=== PATIENT | female | born 1970 | race Caucasian/White ===

== ENCOUNTER 2024-12-10 21:17 | Emergency (ER) | payer OTHER, SELFPAY ==
[2024-12-10 21:33] VITALS: BP 106/74; PULSE 98; TEMP 36.6; O2SAT 98; BMI 20.6
[2024-12-10 22:02] LABS: Basophils % 0.4 %; Eosinophils # 0.3 10^3/uL (0.0-0.8); Eosinophils % 4.3 %; Hematocrit 36.3 % (36-47); Lymphocytes # 2.6 10^3/uL (0.8-4.8); Lymphocytes % 39.4 %; Mean Corpuscular HGB Conc 33.3 g/dL (30-55); Mean Corpuscular Hemoglobin 31.6 pg (27-33); Mean Corpuscular Volume 94.8 fl (85-98); Mean Platelet Volume 8.7 fL (7.4-10.4); Monocytes # 0.7 10^3/uL (0.2-0.9); Monocytes % 9.7 %; Neutrophils # 3.06 10^3/uL (1.8-7.7); Neutrophils % 46.1 %; Nucleated Red Blood Cells % 0 %; Platelet Count 386 10^3/cmm (157-399); Red Blood Count 3.83 10^6/uL (3.85-5.65); Red Cell Distribution Width 12.4 % (12.1-15.1); White Blood Count 6.67 10^3/uL (3.29-11.43)
--- NOTE | 2024-12-10 22:18 | W.ED.GENADLT ---
HPI - General Adult General: Chief complaint: General Medical Stated complaint: general weakness Time Seen by Provider: 12/10/24 22:00 History of Present Illness: 54-year-old female who presents to the emergency room from [facility] by ambulance. Apparently she was there waiting for a ride and she is not from here and when the ride did not arrive she started to feel very dizzy and lightheaded. She says she just does not feel well. She does not have any focal deficits. Has not eaten all day today since the morning. Related Data Allergies Allergy/AdvReac Type Severity Reaction Status Date / Time No Known Allergies Allergy Verified 12/10/24 21:39 Review of Systems Narrative: Constitutional symptoms: Negative except as documented in HPI. Skin symptoms: Negative except as documented in HPI. Eye symptoms: Negative except as documented in HPI. ENMT symptoms: Negative except as documented in HPI. Respiratory symptoms: Negative except as documented in HPI. Cardiovascular symptoms: Negative except as documented in HPI. Gastrointestinal symptoms: Negative except as documented in HPI. Genitourinary symptoms: Negative except as documented in HPI. Musculoskeletal symptoms: Negative except as documented in HPI. Neurologic symptoms: Negative except as documented in HPI. Psychiatric symptoms: Negative except as documented in HPI. Endocrine symptoms: Negative except as documented in HPI. Physical Exam Narrative: EXAM NARRATIVE: General: Alert, no acute distress. Skin: Warm, dry. Head: Normocephalic, atraumatic. Neck: Supple, trachea midline. Eye: Extraocular movements are intact. Ears, nose, mouth and throat: mucosa moist. Cardiovascular: Regular, Normal peripheral perfusion. Respiratory: Lungs are clear to auscultation, respirations are non-labored, breath sounds are equal, Symmetrical chest wall expansion. Gastrointestinal: Soft, Nontender, Non distended Musculoskeletal: Normal ROM, no deformity. Neurological: Alert and oriented, No focal neurological deficit observed. Psychiatric: Cooperative, odd affect Course Vital Signs: Vital signs: Vital Signs Temperature 97.9 F 12/10/24 21:33 Pulse Rate 74 12/10/24 22:42 Respiratory Rate 15 12/10/24 22:42 Blood Pressure 104/72 12/10/24 22:42 Pulse Oximetry 99 12/10/24 22:42 Oxygen Delivery Me thod Room Air 12/10/24 22:42 [facility] - General Adult Medical Decision Making Medical decision making: Differential diagnosis including but not limited to and based on the above HPI, review of systems and physical exam: for patient with complaint of dizziness: stroke, hypotension, hypertension, infection, vertigo, orthostasis Orders placed to evaluate differential diagnosis based on the above differential, HPI and physical exam Lab Review: Laboratory results were reviewed and interpreted by myself the emergency room physician. No leukocytosis. No anemia. No renal failure. No urinary tract infection. Flu COVID and RSV are negative. I reviewed the patient's medical record. Reexamination: Patient remained stable. No increased work of breathing. No altered mental status. No focal motor deficits. Assessment and plan: Dizziness/lightheadedness - Discharged home - Discussed plan with patient. Answered any questions. - Evaluation and treatment of this problem were appropriate in the emergency setting. Lab Data 12/10/24 21:50 12/10/24 21:50 Laboratory Results WBC 6.67 10^3/uL (3.29-11.43) 12/10/24 21:50 RBC 3.83 10^6/uL (3.85-5.65) L 12/10/24 21:50 Hgb 12.10 g/dL (11.27-16.99) 12/10/24 21:50 Hct 36.3 % (36-47) 12/10/24 21:50 MCV 94.8 fl (85-98) 12/10/24 21:50 MCH 31.6 pg (27-33) 12/10/24 21:50 MCHC 33.3 g/dL (30-55) 12/10/24 21:50 RDW 12.4 % (12.1-15.1) 12/10/24 21:50 Plt Count 386 10^3/cmm (157-399) 12/10/24 21:50 MPV 8.7 fL (7.4-10.4) 12/10/24 21:50 Neut % (Auto) 46.1 % 12/10/24 21:50 Lymph % (Auto) 39.4 % 12/10/24 21:50 [place] % (Auto) 9.7 % 12/10/24 21:50 Eos % (Auto) 4.3 % 12/10/24 21:50 Baso % (Auto) 0.4 % 12/10/24 21:50 Neut # (Auto) 3.06 10^3/uL (1.8-7.7) 12/10/24 21:50 Lymph # (Auto) 2.6 10^3/uL (0.8-4.8) 12/10/24 21:50 [place] # (Auto) 0.7 10^3/uL (0.2-0.9) 12/10/24 21:50 Eos # (Auto) 0.3 10^3/uL (0.0-0.8) 12/10/24 21:50 Baso # (Auto) 0.0 10^3/uL (0.0-0.1) 12/10/24 21:50 Nucleated RBC % (auto) 0 % 12/10/24 21:50 Nucleated RBCs # 0.0 /100WBC 12/10/24 21:50 Sodium 132 mmol/L (136-145) L 12/10/24 21:50 Potassium 3.7 mmol/L (3.5-5.1) 12/10/24 21:50 Chloride 98 mmol/L (98-107) 12/10/24 21:50 Carbon Dioxide 25 mmol/L (22-29) 12/10/24 21:50 Anion Gap 12.7 (5-19) 12/10/24 21:50 BUN 7 mg/dL (6-20) 12/10/24 21:50 Creatinine 0.9 mg/dL (0.5-0.9) 12/10/24 21:50 GFR Calculation 64.8 mL/min (90-130) L 12/10/24 21:50 Glucose 100 mg/dL (65-115) 12/10/24 21:50 Calculated Osmolality 272 mOsm/kg (285-295) L 12/10/24 21:50 Calcium 9.0 mg/dL (8.5-10.5) 12/10/24 21:50 Total Bilirubin 0.7 mg/dL (0.15-1.2) 12/10/24 21:50 AST 17 U/L (0-32) 12/10/24 21:50 ALT 17 U/L (0-33) 12/10/24 21:50 Alkaline Phosphatase 102 U/L (35-105) 12/10/24 21:50 Total Protein 6.9 g/dL (6.6-8.7) 12/10/24 21:50 Albumin 3.9 g/dL (3.5-5.2) 12/10/24 21:50 Globulin 3.0 g/dL (1.3-4.6) 12/10/24 21:50 TSH 2.37 uIU/mL (0.27-4.20) 12/10/24 21:50 Urine Color Yellow (Yellow) 12/10/24 22:08 Urine Appearance Clear (CLEAR) 12/10/24 22:08 Urine pH 7.5 (5-7) 12/10/24 22:08 Ur Specific [place] 1.002 (1.005-1.030) L 12/10/24 22:08 Urine Protein Negative (Negative) 12/10/24 22:08 Urine Glucose (UA) Negative (Normal) 12/10/24 22:08 Urine Ketones Negative (Negative) 12/10/24 22:08 Urine Blood Negative (Negative) 12/10/24 22:08 Urine Nitrate Negative (Negative) 12/10/24 22:08 Urine Bilirubin Negative (Negative) 12/10/24 22:08 Urine Urobilinogen 0.2 mg/dL (Negative) 12/10/24 22:08 Ur Leukocyte Esterase Negative (Negative) 12/10/24 22:08 Urine RBC 0-2 /hpf (0-2) 12/10/24 22:08 Urine WBC 0-5 /hpf (0-5) 12/10/24 22:08 Ur Squamous Epith Cells 0-5 /hpf (0-5) 12/10/24 22:08 Amorphous Sediment Not Reportable 12/10/24 22:08 Urine Bacteria None seen /hpf (NONE) 12/10/24 22:08 Hyaline Casts 0-4 /lpf H 12/10/24 22:08 Urine Opiates Screen Negative ng/mL (Negative) 12/10/24 22:08 Ur Barbiturates Screen Negative ng/mL (Negative) 12/10/24 22:08 Ur Phencyclidine Scrn Negative ng/mL (Negative) 12/10/24 22:08 Ur Amphetamines Screen Negative ng/mL (Negative) 12/10/24 22:08 U Benzodiazepines Scrn Negative ng/mL (Negative) 12/10/24 22:08 Urine Cocaine Screen Negative ng/mL (Negative) 12/10/24 22:08 U Marijuana (THC) Screen Negative ng/mL (Negative) 12/10/24 22:08 Influenza A (PCR) Negative (Negative) 12/10/24 22:08 Influenza Type B (PCR) Negative (Negative) 12/10/24 22:08 RSV (PCR) Negative (Negative) 12/10/24 22:08 SARS-CoV-2 (PCR) Negative (Negative) 12/10/24 22:08 No radiology studies performed this visit Discharge Plan Discharge Patient Disposition: Home Clinical Impression: Dizziness Condition: Stable Discharge Orders: Discharge ED (Routine); Ordered 12/10/24 Ordered By: Mindi Clements Discharge Diet: Usual diet Discharge Activity: Increase activity as tolerated Patient Instructions: Lightheadedness (ED), Opioid Safety, Pain Management Activity Restrictions/Additional Instructions: Thank you for choosing [facility] for your healthcare needs today. Please realize this is an emergency room and that we are providing you with a medical screening exam and this may not be complete and all inclusive of all the testing and or work up that you may need to determine your ailment or severity of your illness. You have been screened and evaluated and felt safe for discharge. Health conditions do change or evolve sometimes and as such it is important that you follow up with your Primary Doctor to be re checked, 3-5 days is a general good time frame for follow up. You are always welcome to return to the ED for re assessment if your symptoms are worsening or you have new concerns Print Language: Maltese Coding Level of Care Code ED Engine Dynamometer Tester for Maribeth James
[2024-12-10 22:20] LABS: Bilirubin Urine Negative (Negative); Blood Urine Negative (Negative); Glucose Urine UA Negative (Normal); Ketones Urine Negative (Negative); Leukocyte Esterase Urine Negative (Negative); Nitrate Urine Negative (Negative); Protein Urine Negative (Negative); Specific Gravity, Urine 1.002 (1.005-1.030); Urine Appearance Clear (CLEAR); Urine Color Yellow (Yellow); Urobilinogen Urine 0.2 mg/dL (Negative); pH Urine 7.5 (5-7)
[2024-12-10 22:25] LABS: Add Urine Microscopic? YES; Bacteria Urine None Seen /hpf; Hyaline Casts Urine 0-4 /lpf; RBC Urine 0-2 /hpf (0-2); Squamous Epithelial Cell Urine 0-5 /hpf (0-5); WBC Urine 0-5 /hpf (0-5)
[2024-12-10 22:29] LABS: Amphetamines Screen Urine Negative (Negative); Barbiturates Screen Urine Negative (Negative); Benzodiazepines Screen Urine Negative (Negative); Cocaine Screen Urine Negative (Negative); Opiate Screen Urine Negative (Negative); PCP Screen Urine Negative (Negative); THC Screen Urine Negative (Negative)
[2024-12-10 22:32] LABS: Alanine Aminotransferase 17 U/L (0-33); Albumin Level 3.9 g/dL (3.5-5.2); Alkaline Phosphatase 102 U/L (35-105); Anion Gap 12.7 (5-19); Aspartate Amino Transferase 17 U/L (0-32); Blood Urea Nitrogen 7 mg/dL (6-20); Carbon Dioxide 25 mmol/L (22-29); Chloride 98 mmol/L (98-107); Creatinine Clr Calc Pharmacy 50.9783; Glomerular Filtration Rate 64.8 mL/min (90-130); Glucose 100 mg/dL (65-115); Osmolality Calculated 272 mOsm/kg (285-295); Potassium 3.7 mmol/L (3.5-5.1); Sodium 132 mmol/L (136-145); Thyroid Stimulating Hormone 2.37 uIU/mL (0.27-4.20); Total Bilirubin 0.7 mg/dL (0.15-1.2); Total Protein 6.9 g/dL (6.6-8.7)
[2024-12-10 22:42] VITALS: BP 104/72; PULSE 74; RESP 15; O2SAT 99
[2024-12-10 22:54] LABS: Influenza A NEGATIVE (Negative); Influenza B NEGATIVE (Negative); Respiratory Syncytial Virus Ce NEGATIVE (Negative); SARS-CoV-2 PCR NEGATIVE (Negative)
[2024-12-10 23:08] VITALS: BP 103/74; PULSE 92; O2SAT 98
== END 2024-12-10 23:11 | disposition home or self-care (01) ==
PROVIDERS: Emergency Medicine; Emergency Provider Emergency Medicine
DX: R42 Dizziness and giddiness (principal); Z11.52 Encounter for screening for COVID-19
CPT/HCPCS: 36415; 80053; 80306; 81001; 84443; 85025; 87637; 99283

== ENCOUNTER 2025-07-17 17:40 | Inpatient (IN) | payer OTHER, SELFPAY ==
--- NOTE | 2025-07-17 17:40 | ECG_ITS ---
[employer] Test Date: 2025-07-17 Pat Name: Lluvia Thompson Department: Room: Gender: Female Facility Examiner: : 1970 Requested By: Mindi Grey Order Number: [id number] Harriet MD: Moses Martinez M.D. Measurements Intervals [place] Rate: 88 P: 71 [place]: 117 QRS: 24 QRSD: 85 T: 61 QT: 378 QTc: 458 Interpretive Statements SINUS RHYTHM WITH SHORT [place] INTERVAL Mild diffuse ST depression POSSIBLE RIGHT VENTRICULAR CONDUCTION DELAY [RSR (QR) IN V1/V2] No previous ECG available for comparison Electronically Signed On 07-20-2025 20:23:50 CDT by Moses Martinez M.D. [email or web address]
[2025-07-17 17:41] VITALS: BP 146/87; PULSE 97; RESP 18; TEMP 36.7; O2SAT 99; BMI 20.2
--- NOTE | 2025-07-17 17:42 | ED.C_ITS ---
HPI - Psych 2 General: Chief Complaint: Psychiatric Symptoms Stated Complaint: 96 HOLD Time Seen by Provider: 07/17/25 17:40 History of Present Illness: 54-year-old female who presents emergenc y room by ambulance from the crisis center on a 96-hour hold from the crisis center. Unknown medical history. Apparently she has been having delusional thoughts. 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 Apparently she was [place] last night at the Station curled up in the rain by dumpster. A civilian that brought her to the crisis center today offered her halfway in his van and she willingly went with them even though they did not know 1 another. She says and says she no him. Was thought she may be a danger to herself and she has no differentiation between reality and what is not real. Related Data Allergies Allergy/AdvReac Type Severity Reaction Status Date / Time No Known Allergies Allergy Verified 12/10/24 21:39 Review of Systems 2 Narrative: Constitutional symptoms: Negative except as documented in HPI. Skin symptoms: Negative except as documented in HPI. Eye symptoms: Negative except as documented in HPI. ENMT symptoms: Negative except as documented in HPI. Respiratory symptoms: Negative except as documented in HPI. Cardiovascular symptoms: Negative except as documented in HPI. Gastrointestinal symptoms: Negative except as documented in HPI. Genitourinary symptoms: Negative except as documented in HPI. Musculoskeletal symptoms: Negative except as documented in HPI. Neurologic symptoms: Negative except as documented in HPI. Psychiatric symptoms: Negative except as documented in HPI. Endocrine symptoms: Negative except as documented in HPI. Physical Exam 2 Narrative: EXAM NARRATIVE: General: Alert, no acute distress. Skin: Warm, dry. Head: Normocephalic, atraumatic. Neck: Supple, trachea midline. Eye: Extraocular movements are intact. Ears, nose, mouth and throat: mucosa moist. Cardiovascular: Regular, Normal peripheral perfusion. Respiratory: Lungs are clear to auscultation, respirations are non-labored, breath sounds are equal, Symmetrical chest wall expansion. Gastrointestinal: Soft, Nontender, Non distended Musculoskeletal: Normal ROM, no deformity. Neurological: Alert and oriented, No focal neurological deficit observed. Psychiatric: Cooperative, patient does seem to have a disconnect from reality at this time. Denies any homicidal or suicidal ideation. Course 2 Vital Signs: Vital signs: Vital Signs Temperature 98.1 F 07/17/25 17:41 Pulse Rate 85 07/17/25 19:11 Respiratory Rate 15 07/17/25 19:11 Blood Pressure 132/77 07/17/25 19:11 Pulse Oximetry 98 07/17/25 19:11 Oxygen Delivery Me thod Room Air 07/17/25 19:11 MDM - Psych Medical Decision Making Medical decision making: Patient's reason for coming to the emergency room: Sent with a 96-hour hold from [facility]. Social determinants: It appears patient may be homeless. I reviewed the patient's medical record. Patient has been here twice to the emergency room for different types of complaints. No medical history has been listed. Unknown if she has any psychiatric history. I reviewed the patient's current home meds Alternate historians: No known home meds. Differential diagnosis for patient with reported psychosis with plan for psychiatric admission including but not limited to and based on the above HPI, review of systems and physical exam: concerns for infection, alcohol intoxication, cardiac issues or other medical problems prior to psychiatric admission. Orders placed to evaluate differential diagnosis based on the above differential, HPI and physical exam labwork, ekg ordered to evaluate the pathologies and to clear the patient medically prior to psychiatric admission EKG: Time 1749. Rate 88. Normal sinus rhythm, No ST-T changes, no ectopy, normal PA & QRS intervals, This was reviewed and interpreted by myself the ER physician at 1754. Lab Review: Laboratory results were reviewed and interpreted by myself the emergency room physician. - Medically cleared. - EKG shows no ischemic changes. - Blood alcohol level is negative, as well as salicylate and Tylenol. - Drug screen and urinalysis pending at the time of admission. - No anemia. - BUN and creatinine are within normal limits. ?Potassium is low. Patient received 40 mill equivalents potassium Assessment of risk: - Level of risk moderate - Was hospitalization considered? Patient is on a hold. Consultation: I spoke with Dr. Calderon who is on-call for the psychiatry service who agrees to admission. Assessment and plan: Acute psychosis -Admission to neuropsychiatric unit for continued evaluation and treatment. - All lab work was reviewed and interpreted personally by myself, the ER physician - Evaluation and treatment of this problem were appropriate in the emergency setting Lab Data 07/17/25 17:59 07/17/25 17:59 Laboratory Results WBC 12.46 10^3/uL (3.29-11.43) H 07/17/25 17:59 RBC 4.21 10^6/uL (3.85-5.65) 07/17/25 17:59 Hgb 13.00 g/dL (11.27-16.99) 07/17/25 17:59 Hct 40.5 % (36-47) 07/17/25 17:59 MCV 96.2 fl (85-98) 07/17/25 17:59 MCH 30.9 pg (27-33) 07/17/25 17:59 MCHC 32.1 g/dL (30-55) 07/17/25 17:59 RDW 15.2 % (12.1-15.1) H 07/17/25 17:59 Plt Count 445 10^3/cmm (157-399) H 07/17/25 17:59 MPV 9.1 fL (7.4-10.4) 07/17/25 17:59 Neut % (Auto) 54.7 % 07/17/25 17:59 Lymph % (Auto) 32.7 % 07/17/25 17:59 [place] % (Auto) 10.4 % 07/17/25 17:59 Eos % (Auto) 1.8 % 07/17/25 17:59 Baso % (Auto) 0.1 % 07/17/25 17:59 Neut # (Auto) 6.82 10^3/uL (1.8-7.7) 07/17/25 17:59 Lymph # (Auto) 4.1 10^3/uL (0.8-4.8) 07/17/25 17:59 [place] # (Auto) 1.3 10^3/uL (0.2-0.9) H 07/17/25 17:59 Eos # (Auto) 0.2 10^3/uL (0.0-0.8) 07/17/25 17:59 Baso # (Auto) 0.0 10^3/uL (0.0-0.1) 07/17/25 17:59 Nucleated RBC % (auto) 0 % 07/17/25 17:59 Nucleated RBCs # 0.0 /100WBC 07/17/25 17:59 Sodium 140 mmol/L (136-145) 07/17/25 17:59 Potassium 2.7 mmol/L (3.5-5.1) L* 07/17/25 17:59 Chloride 100 mmol/L (98-107) 07/17/25 17:59 Carbon Dioxide 29 mmol/L (22-29) 07/17/25 17:59 Anion Gap 13.7 (5-19) 07/17/25 17:59 BUN 9 mg/dL (6-20) 07/17/25 17:59 Creatinine 1.0 mg/dL (0.5-0.9) H 07/17/25 17:59 GFR Calculation 57.4 mL/min (90-130) L 07/17/25 17:59 Glucose 105 mg/dL (65-115) 07/17/25 17:59 Calculated Osmolality 289 mOsm/kg (285-295) 07/17/25 17:59 Calcium 8.4 mg/dL (8.5-10.5) L 07/17/25 17:59 Total Bilirubin 0.7 mg/dL (0.15-1.2) 07/17/25 17:59 AST 18 U/L (0-32) 07/17/25 17:59 ALT 25 U/L (0-33) 07/17/25 17:59 Alkaline Phosphatase 123 U/L (35-105) H 07/17/25 17:59 Total Protein 6.9 g/dL (6.6-8.7) 07/17/25 17:59 Albumin 3.8 g/dL (3.5-5.2) 07/17/25 17:59 Globulin 3.1 g/dL (1.3-4.6) 07/17/25 17:59 TSH 4.09 uIU/mL (0.27-4.20) 07/17/25 17:59 HCG, Qual Negative (Negative) 07/17/25 17:45 Salicylates < 0.3 mg/dL (3-10) L 07/17/25 17:59 Acetaminophen < 5.0 ug/mL (10-30) L 07/17/25 17:59 Ethyl Alcohol < 10 mg/dL (0-10) 07/17/25 17:59 No radiology studies performed this visit Discharge Plan Discharge Patient Disposition: Admitted As Inpatient Clinical Impression: Acute psychosis Condition: Stable Coding Level of Care Code ED Stock [employer] Station Agent for Maribeth James
--- OUTSIDE RECORDS SUMMARY | 2025-07-17 17:46 | XMS_ITS | Data Portability ---
Author Organization [facility] Address [address] [place] [address] [place]aye [address] Assessment No assessment recorded. Plan of Treatment Reminders Order Date Submit Date Provider Last Modified By Organization Details Last Modified Time Details Appointments None recorded. Lab None recorded. Referral gynecologis t referral 2017 018 RUTH Lazo MD, [address] [place] [address] [address], [place], [address], 8 16:23:13 gynecologis t referral 2017 018 [email or web address] Gopal Lazo MD, [address] [place] [address] [address], [place], [address], 8 12:44:32 Procedures None recorded. Surgeries None recorded. Imaging None recorded. Medication Orders None recorded. Patient TargetsNo targets recorded. Patient Instructions Encounter Date Encounter Id Patient Instructions Last Modified By Organization Details Last Modified Time 11/18/2017 [id number] i will contact the patient with the date and time for gynecology followup [email or web address] Not available 11/18/2017 16:19:07 01/25/2018 [id number] vaginal bleeding after menopause: care instructions [email or web address] Not available 01/25/2018 15:32:45 Reason for Referral Wheat Washer Referral for Po stmenopausal bleeding Referring Physician: Carmencita Pelletier, Internal Medicine, Encounter Date: 11/18/2017 Wheat Washer Referral for Po stmenopausal bleeding Referring Physician: Carmencita Pelletier, Internal Medicine, Encounter Date: 01/25/2018 Problems Name Problem SNOMED Code Status Onset Date Resolution Date Notes Provider Name and Address Organization Details Recorded Time Furuncle of groin 41930415 Active 2016 Not Available [facility] 7 05:54:35 Postmenopausal bleeding 70601813 [facility] [address] [facility] 15:42:[facility] Notes:Some problems listed i n Document: #[id number] could not be added to this patient's chart. Please review this document and add these problems to the patient's chart manually as needed. Problem Notes None recorded. Medical Equipment None Reported. Allergies No known drug allergies Medications Name Sig Start Date Stop Date Status Note LastModified by Organization Details LastModified Time Bactrim DS 017 2016 completed Not Available Not Available Not Available mupirocin 017 2016 completed Not Available Not Available Not Available Vitals Date Recorded Body height Heart rate Respiratory rate Body temperature Body mass index (BMI) Body weight Systolic And Diastolic Provider Name and Address Organization Details Last Updated DateTime 8 154.94 cm 80 /min 14 /min 98.6 [degF] 20.8 kg/m2 02122.1 6 g 110/60 mm[Hg] Myriam Cope [facility] 8 16:07:17 Date Recorded Body height Heart rate Respiratory rate Body temperature Body mass index (BMI) Body weight Systolic And Diastolic Provider Name and Address Organization Details Last Updated DateTime 8 154.94 cm 88 /min 20 /min 97.2 [degF] 21.2 kg/m2 48572.3 5 g 120/70 mm[Hg] Darling Preciado [facility] 8 14:44:38 Social History Question Answer Notes LastModified by Organizat ion Details LastModified Time Tobacco Smoking Status Never Smoker Myriam soto [facility] 11/18/2017 16:07:40 How Often Do You Need To Have Someone Help You When You Read Instructions, Pamphlets, Or Other Written Material From Your Doctor Or Pharmacy? 1-Never [email or web address] Information not available 11/18/2017 What Was The Date Of Your Most Recent Tobacco Screening? 01/25/2018 Information n ot available 04/11/2019 Sex: Unknown Functional Status None recorded. Mental Status None recorded. Family History Nothing Reported. Medical History No medical history recorded. Gynecological HistoryNo gynecological history recorded. Obstetrics History GPAL:G 0 P 0 0 0 0 Past Encounters Encounter ID Performer Location Encounter Start Date Encounter Closed Date Diagnosis/Indication Diagnosis SNOMED-CT Code Diagnosis ICD10 Code Diagnosis IMO Codes Diagnosis Note [id number] Carmencita Pelletier MD [address] [address] 11/18/2017 15:46:31 11/18/2017 16:44:04 Postmenopausal bleeding 42302926 N95.0 [id number] Carmencita Pelletier MD [address] [address] 01/25/2018 14:32:33 01/30/2018 11:52:20 Postmenopausal bleeding 34208719 N95.0 will reschedule with gynecology Health Concerns Section Related Observation LastModified by Organization Detai ls LastModified Time None Recorded Concern Status LastModified by Organization Details LastModified Time None Recorded Advance Directives Directive None Recorded Payers Insurance Date Sequence Insurance Name Policy Number Policy Smith Covered Member ID Smith Member ID Guarantor Name 09/06/2023 1 DAVIS RODRIGUEZ - ESSENTIAL CARE 2 (PPO) [id number] Lluvia Thompson [id number] Lluvia Thompson Notes Date Note Type Note Provider Name and Address Organization Details Recorded Time 11/18/2017 text/html ROS as noted in the HPI patient for followup on an episode of post menopausal vaginal bleeding Carmencita Pelletier brittany [facility] 11/28/2017 11:10:59 01/25/2018 text/html ROS as noted in the HPI the patient comes in today for followup on her postmenopausal bleeding Carmencita Pelletier brittany [facility] 01/26/2018 21:18:14 OBGyn Episode No OBEpisode recorded.
[2025-07-17 18:18] LABS: HCG Qualitative Urine. Negative (Negative)
--- NOTE | 2025-07-17 18:18 | PC.NURSE ---
Pt was read their 96 hour hold rights, security was present.
[2025-07-17 18:20] LABS: Hematocrit 40.5 % (36-47); Hemoglobin 13.00 g/dL (11.27-16.99); Mean Corpuscular HGB Conc 32.1 g/dL (30-55); Mean Corpuscular Hemoglobin 30.9 pg (27-33); Mean Corpuscular Volume 96.2 fl (85-98); Nucleated Red Blood Cells % 0 %; Platelet Count 445 10^3/cmm (157-399); Red Blood Count 4.21 10^6/uL (3.85-5.65); White Blood Count 12.46 10^3/uL (3.29-11.43)
[2025-07-17 18:44] LABS: Alanine Aminotransferase 25 U/L (0-33); Albumin Level 3.8 g/dL (3.5-5.2); Alkaline Phosphatase 123 U/L (35-105); Anion Gap 13.7 (5-19); Aspartate Amino Transferase 18 U/L (0-32); Blood Urea Nitrogen 9 mg/dL (6-20); Calcium 8.4 mg/dL (8.5-10.5); Carbon Dioxide 29 mmol/L (22-29); Chloride 100 mmol/L (98-107); Globulin 3.1 g/dL (1.3-4.6); Glucose 105 mg/dL (65-115); Osmolality Calculated 289 mOsm/kg (285-295); Sodium 140 mmol/L (136-145); Thyroid Stimulating Hormone 4.09 uIU/mL (0.27-4.20); Total Protein 6.9 g/dL (6.6-8.7)
[2025-07-17 18:45] LABS: Acetaminophen < 5.0 ug/mL (10-30); Alcohol Level < 10 mg/dL (0-10); Potassium 2.7 mmol/L (3.5-5.1); Salicylate < 0.3 mg/dL (3-10)
[2025-07-17] MEDS: potassium chloride oral liq 20 mEq/15 mL UDC 40 MEQ PO (19:07)
[2025-07-17 19:11] VITALS: BP 132/77; PULSE 85; RESP 15; O2SAT 98
[2025-07-17 19:34] LABS: Glucose Urine UA Negative (Normal); Nitrate Urine Negative (Negative); Specific Gravity, Urine 1.004 (1.005-1.030)
[2025-07-17 19:39] LABS: Add Urine Microscopic? YES
[2025-07-17 19:41] LABS: PCP Screen Urine Negative (Negative)
[2025-07-17 21:44] VITALS: BP 109/75; PULSE 85; O2SAT 94
[2025-07-17 22:10] VITALS: BP 109/75; PULSE 85; O2SAT 94
[2025-07-17 22:12] VITALS: BP 132/83; PULSE 96; RESP 18; TEMP 37; O2SAT 95
[2025-07-18 06:00] VITALS: BP 138/92; PULSE 96; RESP 18; TEMP 36.7; O2SAT 89
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
--- NOTE | 2025-07-18 13:26 | PC.NURSE ---
Per Dr. Calderon ordered a CMP to recheck K+
[2025-07-18 14:00] VITALS: BP 108/68; PULSE 93; RESP 14; TEMP 37.1; O2SAT 94
[2025-07-18 15:47] LABS: Alanine Aminotransferase 17 U/L (0-33); Albumin Level 3.0 g/dL (3.5-5.2); Alkaline Phosphatase 103 U/L (35-105); Anion Gap 12.6 (5-19); Aspartate Amino Transferase 12 U/L (0-32); Blood Urea Nitrogen 15 mg/dL (6-20); Calcium 8.2 mg/dL (8.5-10.5); Carbon Dioxide 26 mmol/L (22-29); Chloride 103 mmol/L (98-107); Globulin 2.4 g/dL (1.3-4.6); Glucose 112 mg/dL (65-115); Osmolality Calculated 288 mOsm/kg (285-295); Potassium 3.6 mmol/L (3.5-5.1); Sodium 138 mmol/L (136-145); Total Protein 5.4 g/dL (6.6-8.7)
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
[2025-07-18 22:00] VITALS: BP 144/86; PULSE 81; RESP 18; TEMP 36.6; O2SAT 98
[2025-07-19 14:00] VITALS: BP 141/88; PULSE 80; RESP 16; TEMP 36.7; O2SAT 97
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
[2025-07-19 21:00] VITALS: BP 134/84; PULSE 107; RESP 18; TEMP 36.4; O2SAT 97
[2025-07-20 06:00] VITALS: BP 127/91; PULSE 86; RESP 16; TEMP 36.7; O2SAT 98
[2025-07-20 14:00] VITALS: BP 122/80; PULSE 88; RESP 16; TEMP 36.8; O2SAT 97
--- NOTE | 2025-07-20 15:36 | P.NPUPN_ITS ---
Subjective NPU 2 Subjective: Patient presented today reporting that things are going okay. She continues to be quite isolative per staff reports and direct observation. This staff writer has rarely seen her out of her room or out of bed. She does not need and set up during conversations at all. She continues to be resistant to considering medications, denies psychiatric history other than some slight difficulties with family conflict. His story does not match up with reports we got from community which we discussed but she denied that those reports were accurate. She is not interested in any medication. Mental Status Exam 2 MSE Comments: This is a thin white female who appeared older than her stated age with extremely poor hygiene and normal gait. There was no evidence of any abnormal involuntary motor movements tics or tremors appreciated. There was substantial psychomotor agitation. Her speech was slightly increased in rate and increased in volume with normal prosody. Her mood was described as angry. Her affect was irritable and mood-congruent. Her thought process was mostly linear and logical. Her thought content revealed no suicidal or homicidal ideation. There was evidence of prominent delusions and significant paranoid ideation. She did not appear to be responding to internal stimuli. She was alert and oriented to person and place along with date and year. Her recent and remote memory were impaired. Her attention span was impaired. Her insight is limited. Her judgment is poor. Her impulse control appeared very poor. Vitals/I&O/Wt Last Vital Signs Temp 98.3 F 07/20/25 14:00 Pulse 88 07/20/25 14:00 Resp 16 07/20/25 14:00 BP 122/80 07/20/25 14:00 Pulse Ox 97 07/20/25 14:00 O2 Del Method Room Air 07/20/25 06:00 Data NPU 07/17/25 17:59 07/18/25 15:13 A&P Assessment and plan 1. Acute psychosis: 2. Bipolar affective, manic, unspec: Plan: 54-year-old female negative for drugs of abuse or alcohol who presents acutely paranoid with bizarre delusions along with poor self-care. #1.? Engage patient in individual milieu and group therapy. #2?? Recommend sober living treatment at the highest level of care to which the patient is willing to commit #3???Evaluate under involuntary hold. Patient may require forced medication. ? #4?? TO-15 minute checks? #5?? Will attempt to gather collateral information. PDMP PDMP Reviewed: Not Reviewed Involuntary Hold Information 2 Hold Status: Legal Status: 96 Hour Hold Date/Time Hold Expires: 07/23/2025 @ 1741 Attestations NPU 2 Medical Necessity Statement*: Inpatient hospitalization is medically necessary and the clinically appropriate intervention at this time.? We will monitor/initiate medications and make changes as indicated.? The patient?s likely length of stay is 4-6 days.? Coding Level of Care Code Acute Code for Chg Fwd Diagnoses Acute psychosis F23 Bipolar affective, manic, unspec F31.10
[2025-07-20 20:20] VITALS: BP 131/78; PULSE 86; RESP 15; TEMP 36.6; O2SAT 99
[2025-07-21 06:00] VITALS: BP 114/73; PULSE 90; RESP 16; TEMP 36.7; O2SAT 96
[2025-07-21 14:00] VITALS: BP 139/91; PULSE 84; RESP 16; TEMP 36.5; O2SAT 100
--- NOTE | 2025-07-21 17:27 | P.NPUPN_ITS ---
Subjective NPU 2 Subjective: Patient presented today reporting she is going fine. She continues to be speculative and staying in her room. We discussed the fact that for her to discharge we needed to see her having capacity to function normally in this environment to extrapolate that she might be able to do that in a expanded outpatient reality. She continued to deny any psychiatric concerns but continued to fail to give some kind of explanation for her circumstances. We discussed the plan to get collateral information so that we knew what was best to do by her. She denied any side effects to medication. Mental Status Exam 2 MSE Comments: This is a thin white female who appeared older than her stated age with extremely poor hygiene and normal gait. There was no evidence of any abnormal involuntary motor movements tics or tremors appreciated. There was substantial psychomotor agitation. Her speech was slightly increased in rate and increased in volume with normal prosody. Her mood was described as angry. Her affect was irritable and mood-congruent. Her thought process was mostly linear and logical. Her thought content revealed no suicidal or homicidal ideation. There was evidence of prominent delusions and significant paranoid ideation. She did not appear to be responding to internal stimuli. She was alert and oriented to person and place along with date and year. Her recent and remote memory were impaired. Her attention span was impaired. Her insight is limited. Her judgment is poor. Her impulse control appeared very poor. Vitals/I&O/Wt Last Vital Signs Temp 98.6 F 07/21/25 20:53 Pulse 91 07/21/25 20:53 Resp 17 07/21/25 20:53 BP 151/92 07/21/25 20:53 Pulse Ox 98 07/21/25 20:53 O2 Del Method Room Air 07/21/25 20:53 Weight last 48 hrs Weight 45.994 kg Data NPU 07/17/25 17:59 07/18/25 15:13 A&P Assessment and plan 1. Acute psychosis: 2. Bipolar affective, manic, unspec: Plan: 54-year-old female negative for drugs of abuse or alcohol who presents acutely paranoid with bizarre delusions along with poor self-care. #1.? Engage patient in individual milieu and group therapy. #2?? Recommend sober living treatment at the highest level of care to which the patient is willing to commit #3???Evaluate under involuntary hold. Patient may require forced medication. ? #4?? TO-15 minute checks? #5?? Will attempt to gather collateral information. PDMP PDMP Reviewed: Not Reviewed Involuntary Hold Information 2 Hold Status: Legal Status: 96 Hour Hold Date/Time Hold Expires: 07/23/2025 @ 1741 Attestations NPU 2 Medical Necessity Statement*: Inpatient hospitalization is medically necessary and the clinically appropriate intervention at this time.? We will monitor/initiate medications and make changes as indicated.? The patient?s likely length of stay is 4-6 days.? Coding Level of Care Code Acute Code for Chg Fwd Diagnoses Acute psychosis F23 Bipolar affective, manic, unspec F31.10
[2025-07-21 20:53] VITALS: BP 151/92; PULSE 91; RESP 17; TEMP 37; O2SAT 98
--- NOTE | 2025-07-22 06:48 | PC.NURSE ---
vs refused, resp 16, nurse notified
[2025-07-22 13:09] VITALS: BP 104/64; PULSE 98; RESP 16; TEMP 36.6; O2SAT 97
--- NOTE | 2025-07-22 18:47 | P.NPUPN_ITS ---
Subjective NPU 2 Subjective: Patient presented today reporting that she is doing all right. She continues to be isolative per staff reports and direct observation. She continues to deny the issues that were raised in the affidavit and the things that they reported she was saying she sought and experienced. We discussed the importance of us identifying the source of that behavior and treating it to make sure that she will be safe for discharge. She does not believe that there is anything is wrong with her or has been wrong with her even though we are clear that she has had psychiatric challenges and been in treatment facilities in the past. She continues to struggle with insight per staff reports and direct observation and continues to deny the need for medication. We discussed that this means we need to either determine that she is safe to move on even though she is having these psychotic episodes or follow-up with her in the [address] setting for forced medication. Mental Status Exam 2 MSE Comments: This is a thin white female who appeared older than her stated age with extremely poor hygiene and normal gait. There was no evidence of any abnormal involuntary motor movements tics or tremors appreciated. There was substantial psychomotor agitation. Her speech was slightly increased in rate and increased in volume with normal prosody. Her mood was described as angry. Her affect was irritable and mood-congruent. Her thought process was mostly linear and logical. Her thought content revealed no suicidal or homicidal ideation. There was evidence of prominent delusions and significant paranoid ideation. She did not appear to be responding to internal stimuli. She was alert and oriented to person and place along with date and year. Her recent and remote memory were impaired. Her attention span was impaired. Her insight is limited. Her judgment is poor. Her impulse control appeared very poor. Vitals/I&O/Wt Last Vital Signs Temp 97.8 F 07/22/25 20:04 Pulse 86 07/22/25 20:04 Resp 16 07/22/25 20:04 BP 138/89 07/22/25 20:04 Pulse Ox 95 07/22/25 20:04 O2 Del Method Room Air 07/22/25 20:04 Data NPU 07/17/25 17:59 07/18/25 15:13 A&P Assessment and plan 1. Acute psychosis: 2. Bipolar affective, manic, unspec: Plan: 54-year-old female negative for drugs of abuse or alcohol who presents acutely paranoid with bizarre delusions along with poor self-care. #1.? Engage patient in individual milieu and group therapy. #2?? Recommend sober living treatment at the highest level of care to which the patient is willing to commit #3???Evaluate under involuntary hold. Patient may require forced medication. ? #4?? TO-15 minute checks? #5?? Will attempt to gather collateral information. PDMP PDMP Reviewed: Not Reviewed Involuntary Hold Information 2 Hold Status: Legal Status: 96 Hour Hold Date/Time Hold Expires: 07/23/2025 @ 1741 Attestations NPU 2 Medical Necessity Statement*: Inpatient hospitalization is medically necessary and the clinically appropriate intervention at this time.? We will monitor/initiate medications and make changes as indicated.? The patient?s likely length of stay is 4-6 days.? Coding Level of Care Code Acute Code for g Fwd Diagnoses Acute psychosis F23 Bipolar affective, manic, unspec F31.10
[2025-07-22 20:04] VITALS: BP 138/89; PULSE 86; RESP 16; TEMP 36.6; O2SAT 95
[2025-07-23 06:00] VITALS: BP 108/64; PULSE 106; RESP 16; TEMP 36.8; O2SAT 94
[2025-07-23 14:00] VITALS: BP 122/81; PULSE 147; RESP 16; O2SAT 98
--- NOTE | 2025-07-23 17:03 | P.NPUPN_ITS ---
Subjective NPU 2 Subjective: Patient presented today unchanged and denying any new or challenging issues. She continued to deny need for medication. She continues isolative per staff reports and direct observation. We discussed the fact that we will be filing an extension on her hold. Mental Status Exam 2 MSE Comments: This is a thin white female who appeared older than her stated age with extremely poor hygiene and normal gait. There was no evidence of any abnormal involuntary motor movements tics or tremors appreciated. There was substantial psychomotor agitation. Her speech was slightly increased in rate and increased in volume with normal prosody. Her mood was described as angry. Her affect was irritable and mood-congruent. Her thought process was mostly linear and logical. Her thought content revealed no suicidal or homicidal ideation. There was evidence of prominent delusions and significant paranoid ideation. She did not appear to be responding to internal stimuli. She was alert and oriented to person and place along with date and year. Her recent and remote memory were impaired. Her attention span was impaired. Her insight is limited. Her judgment is poor. Her impulse control appeared very poor. Vitals/I&O/Wt Last Vital Signs Temp 98.1 F 07/23/25 19:50 Pulse 101 H 07/23/25 19:50 Resp 18 07/23/25 19:50 BP 129/85 07/23/25 19:50 Pulse Ox 98 07/23/25 19:50 O2 Del Method Room Air 07/23/25 19:50 07/23/25 14:59 Intake Total Balance Data NPU 07/17/25 17:59 07/18/25 15:13 A&P Assessment and plan 1. Acute psychosis: 2. Bipolar affective, manic, unspec: Plan: 54-year-old female negative for drugs of abuse or alcohol who presents acutely paranoid with bizarre delusions along with poor self-care. 1. Continue without medication at this time as patient denies need for medication. 2. Encourage individual, group and milieu therapy. 3. Continue every 15 minute checks for safety. 4. Obtain collateral information. Did get some information from local law enforcement back in [place]. 5. Evaluate against the backdrop of the 96-hour hold. Likely we will require forced medication. Filed for 21-day hold. PDMP PDMP Reviewed: Not Reviewed Involuntary Hold Information 2 Hold Status: Legal Status: 96 Hour Hold Date/Time Hold Expires: 07/23/2025 @ 1741 Attestations NPU 2 Medical Necessity Statement*: Inpatient hospitalization is medically necessary and the clinically appropriate intervention at this time.? We will monitor/initiate medications and make changes as indicated.? The patient?s likely length of stay is 4-6 days.? Coding Level of Care Code Acute Code for Chg Fwd Diagnoses Acute psychosis F23 Bipolar affective, manic, unspec F31.10
[2025-07-23 19:50] VITALS: BP 129/85; PULSE 101; RESP 18; TEMP 36.7; O2SAT 98
[2025-07-24 06:00] VITALS: BP 111/71; PULSE 82; RESP 16; TEMP 36.6; O2SAT 93
--- NOTE | 2025-07-24 07:27 | P.NPUPN_ITS ---
Subjective NPU 2 Subjective: Patient presented today with decrease in isolation and increase in conversation. With that patient demonstrated more signs of delusional thinking that she had been over the past couple of days as she shared some very confusing and disturbing ideas about what is actually going on. We discussed concerns about what she was saying and she often was saying I know this sounds crazy but. We discussed the fact that she had 96-hour hold extension filed and her 21-day hold hearing is tomorrow. She continues to deny the need for medication. Mental Status Exam 2 MSE Comments: This is a thin white female who appeared older than her stated age with extremely poor hygiene and normal gait. There was no evidence of any abnormal involuntary motor movements tics or tremors appreciated. There was substantial psychomotor agitation. Her speech was slightly increased in rate and increased in volume with normal prosody. Her mood was described as angry. Her affect was irritable and mood-congruent. Her thought process was mostly linear and logical. Her thought content revealed no suicidal or homicidal ideation. There was evidence of prominent delusions and significant paranoid ideation. She did not appear to be responding to internal stimuli. She was alert and oriented to person and place along with date and year. Her recent and remote memory were impaired. Her attention span was impaired. Her insight is limited. Her judgment is poor. Her impulse control appeared very poor. Vitals/I&O/Wt Last Vital Signs Temp 97.9 F 07/24/25 06:00 Pulse 82 07/24/25 06:00 Resp 16 07/24/25 06:00 BP 111/71 07/24/25 06:00 Pulse Ox 93 07/24/25 06:00 O2 Del Method Room Air 07/24/25 06:00 07/23/25 07/24/25 07/24/25 22:59 06:59 14:59 Intake Total 480 / 480 Balance 480 / 480 Data NPU 07/17/25 17:59 07/18/25 15:13 A&P Assessment and plan 1. Acute psychosis: 2. Bipolar affective, manic, unspec: Plan: 54-year-old female negative for drugs of abuse or alcohol who presents acutely paranoid with bizarre delusions along with poor self-care. 1. Continue without medication at this time as patient denies need for medication. 2. Encourage individual, group and milieu therapy. 3. Continue every 15 minute checks for safety. 4. Obtain collateral information. Did get some information from local law enforcement back in [place]. 5. Evaluate against the backdrop of the 96-hour hold. Likely we will require forced medication. Filed for 21-day hold. 21-day hold hearing tomorrow. PDMP PDMP Reviewed: Not Reviewed Involuntary Hold Information 2 Hold Status: Legal Status: 96 Hour Hold Date/Time Hold Expires: 07/23/2025 @ 1741 Attestations NPU 2 Medical Necessity Statement*: Inpatient hospitalization is medically necessary and the clinically appropriate intervention at this time.? We will monitor/initiate medications and make changes as indicated.? The patient?s likely length of stay is 4-6 days.? Coding Level of Care Code Acute Code for Chg Fwd Diagnoses Acute psychosis F23 Bipolar affective, manic, unspec F31.10
[2025-07-24 14:00] VITALS: BP 138/89; PULSE 98; RESP 15; O2SAT 100
[2025-07-24 20:28] VITALS: BP 152/99; PULSE 90; RESP 18; TEMP 36; O2SAT 100
[2025-07-25 05:55] VITALS: BP 123/88; PULSE 112; RESP 16; TEMP 36.8; O2SAT 96
--- NOTE | 2025-07-25 13:28 | W.PM.NPUPNS ---
Subjective NPU Subjective: Patient presented today reporting things are going all right. She endorsed continuing her plan to try to get back to her house in [place]. We discussed the need consider medication and that we are trying to figure out what she has been in the past so that we can do something that is appropriate and has not been an effective. She continued to deny the need for medication. Mental Status Exam MSE Comments: This is a thin white female who appeared older than her stated age with extremely poor hygiene and normal gait. There was no evidence of any abnormal involuntary motor movements tics or tremors appreciated. There was substantial psychomotor agitation. Her speech was slightly increased in rate and increased in volume with normal prosody. Her mood was described as angry. Her affect was irritable and mood-congruent. Her thought process was mostly linear and logical. Her thought content revealed no suicidal or homicidal ideation. There was evidence of prominent delusions and significant paranoid ideation. She did not appear to be responding to internal stimuli. She was alert and oriented to person and place along with date and year. Her recent and remote memory were impaired. Her attention span was impaired. Her insight is limited. Her judgment is poor. Her impulse control appeared very poor. Vitals/I&O/Wt Last Vital Signs Temp 98.2 F 07/25/25 05:55 Pulse 112 H 07/25/25 05:55 Resp 16 07/25/25 05:55 BP 123/88 07/25/25 05:55 Pulse Ox 96 07/25/25 05:55 O2 Del Method Room Air 07/25/25 05:55 Data NPU 07/17/25 17:59 07/18/25 15:13 A&P Assessment and plan 1. Acute psychosis: 2. Bipolar affective, manic, unspec: Plan: 54-year-old female negative for drugs of abuse or alcohol who presents acutely paranoid with bizarre delusions along with poor self-care. 1. Continue without medication at this time as patient denies need for medication. We will discuss medications given the mandate from the 21-day hold. 2. Encourage individual, group and milieu therapy. 3. Continue every 15 minute checks for safety. 4. Obtain collateral information. Did get some information from local law enforcement back in [place]. 5. Evaluate against the backdrop of the 96-hour hold. Likely we will require forced medication. Filed for 21-day hold. 21-day hold hearingwas today and patient placed on 20. PDMP PDMP Reviewed: Not Reviewed Involuntary Hold Information Hold Status: Legal Status: 96 Hour Hold Date/Time Hold Expires: 07/23/2025 @ 1741 Attestations NPU Medical Necessity Statement*: Inpatient hospitalization is medically necessary and the clinically appropriate intervention at this time.? We will monitor/initiate medications and make changes as indicated.? The patient?s likely length of stay is 4-6 days.? Coding Level of Care Code Acute Code for Chg Fwd Diagnoses Acute psychosis F23 Bipolar affective, manic, unspec F31.10
[2025-07-25 13:39] VITALS: BP 120/88; PULSE 100; RESP 16; O2SAT 96
[2025-07-25 20:38] VITALS: BP 128/80; PULSE 82; RESP 17; TEMP 36.7; O2SAT 98
[2025-07-26 06:00] VITALS: BP 130/81; PULSE 85; RESP 16; TEMP 36.7; O2SAT 95
--- NOTE | 2025-07-26 12:08 | P.NPUPN_ITS ---
Subjective NPU 2 Subjective: Patient presented today continuing to have challenges in regards to her strange thoughts per staff report from direct observation. She reports that she previously was on Abilify and she does not think that that worked really well for her but she was open to the possibility of trying Invega which will be started at 3 mg p.o. nightly. Otherwise she continuum report strange experiences and being unclear about a lot of things. She was not excited about taking medications but we discussed that being part of her hospitalization. Mental Status Exam 2 MSE Comments: This is a thin white female who appeared older than her stated age with extremely poor hygiene and normal gait. There was no evidence of any abnormal involuntary motor movements tics or tremors appreciated. There was substantial psychomotor agitation. Her speech was slightly increased in rate and increased in volume with normal prosody. Her mood was described as angry. Her affect was irritable and mood-congruent. Her thought process was mostly linear and logical. Her thought content revealed no suicidal or homicidal ideation. There was evidence of prominent delusions and significant paranoid ideation. She did not appear to be responding to internal stimuli. She was alert and oriented to person and place along with date and year. Her recent and remote memory were impaired. Her attention span was impaired. Her insight is limited. Her judgment is poor. Her impulse control appeared very poor. Vitals/I&O/Wt Last Vital Signs Temp 98.0 F 07/26/25 06:00 Pulse 85 07/26/25 06:00 Resp 16 07/26/25 06:00 BP 130/81 07/26/25 06:00 Pulse Ox 95 07/26/25 06:00 O2 Del Method Room Air 07/26/25 06:00 07/25/25 07/26/25 07/26/25 22:59 06:59 14:59 Intake Total 480 / 480 480 / 480 Balance 480 / 480 480 / 480 Data NPU 07/17/25 17:59 07/18/25 15:13 A&P Assessment and plan 1. Acute psychosis: 2. Bipolar affective, manic, unspec: Plan: 54-year-old female negative for drugs of abuse or alcohol who presents acutely paranoid with bizarre delusions along with poor self-care. 1. Continue without medication at this time as patient denies need for medication. We will discuss medications given the mandate from the 21-day hold. Initiate Invega 3 mg p.o. nightly. 2. Encourage individual, group and milieu therapy. 3. Continue every 15 minute checks for safety. 4. Obtain collateral information. Did get some information from local law enforcement back in [place]. 5. Evaluate against the backdrop of the 96-hour hold. Likely we will require forced medication. Filed for 21-day hold. 21-day hold hearingwas today and patient placed on 20. PDMP PDMP Reviewed: Not Reviewed Involuntary Hold Information 2 Hold Status: Legal Status: 96 Hour Hold Date/Time Hold Expires: 08/15/2025 Attestations NPU 2 Medical Necessity Statement*: Inpatient hospitalization is medically necessary and the clinically appropriate intervention at this time.? We will monitor/initiate medications and make changes as indicated.? The patient?s likely length of stay is 7-10 days.? Coding Level of Care Code Acute Code for Chg Fwd Diagnoses Acute psychosis F23 Bipolar affective, manic, unspec F31.10
[2025-07-26 14:00] VITALS: BP 123/81; PULSE 88; RESP 15; TEMP 36.6; O2SAT 98
[2025-07-26 20:32] VITALS: BP 121/82; PULSE 108; RESP 17; TEMP 36.4; O2SAT 96
[2025-07-27 14:00] VITALS: BP 119/65; PULSE 95; RESP 16; TEMP 36.9; O2SAT 98
--- NOTE | 2025-07-27 17:57 | P.NPUPN_ITS ---
Subjective NPU 2 Subjective: Patient presented today reporting that she is doing fine and was inquiring about going home. We discussed the fact that she is on a 21-day hold and that we need to get her functioning at a better place so that should be safe to discharge. We discussed her question about why she really needed to be there by discussing her getting into the van with that manage she did not know. We discussed the fact that by all standards that was a dangerous decision. She reported that she was not that excited about taking medication and that she might feel safer about taking her medication if she was home with her family. We discussed that our understanding was that she has not been with family for some time and that she had been homeless and we going to make sure she is functioning at a level where that does not have to be the case. We discussed hopefulness that she would give the medication a try but discussed her being on a 21-day hold and that we would need to do some kind of forced medication protocol if we cannot get her adherence. Mental Status Exam 2 MSE Comments: This is a thin white female who appeared older than her stated age with extremely poor hygiene and normal gait. There was no evidence of any abnormal involuntary motor movements tics or tremors appreciated. There was substantial psychomotor agitation. Her speech was slightly increased in rate and increased in volume with normal prosody. Her mood was described as angry. Her affect was irritable and mood-congruent. Her thought process was mostly linear and logical. Her thought content revealed no suicidal or homicidal ideation. There was evidence of prominent delusions and significant paranoid ideation. She did not appear to be responding to internal stimuli. She was alert and oriented to person and place along with date and year. Her recent and remote memory were impaired. Her attention span was impaired. Her insight is limited. Her judgment is poor. Her impulse control appeared very poor. Vitals/I&O/Wt Last Vital Signs Temp 98.4 F 07/27/25 14:00 Pulse 95 07/27/25 14:00 Resp 16 07/27/25 14:00 BP 119/65 07/27/25 14:00 Pulse Ox 98 07/27/25 14:00 O2 Del Method Room Air 07/27/25 14:00 Weight last 48 hrs Weight 43.998 kg Data NPU 07/17/25 17:59 07/18/25 15:13 A&P Assessment and plan 1. Acute psychosis: 2. Bipolar affective, manic, unspec: Plan: 54-year-old female negative for drugs of abuse or alcohol who presents acutely paranoid with bizarre delusions along with poor self-care. 1. Continue without medication at this time as patient denies need for medication. We will discuss medications given the mandate from the 21-day hold. Initiate Invega 3 mg p.o. nightly. 2. Encourage individual, group and milieu therapy. 3. Continue every 15 minute checks for safety. 4. Obtain collateral information. Did get some information from local law enforcement back in [place]. 5. Evaluate against the backdrop of the 96-hour hold. Likely we will require forced medication. Filed for 21-day hold. 21-day hold hearingwas today and patient placed on 20. PDMP PDMP Reviewed: Not Reviewed Involuntary Hold Information 2 Hold Status: Legal Status: 96 Hour Hold Date/Time Hold Expires: 08/15/2025 Attestations NPU 2 Medical Necessity Statement*: Inpatient hospitalization is medically necessary and the clinically appropriate intervention at this time.? We will monitor/initiate medications and make changes as indicated.? The patient?s likely length of stay is 7-10 days.? Coding Level of Care Code Acute Code for [facility] Fwd Diagnoses Acute psychosis F23 Bipolar affective, manic, unspec F31.10
[2025-07-27 20:43] VITALS: BP 142/72; PULSE 79; RESP 16; TEMP 36.6; O2SAT 98
[2025-07-27 21:22] VITALS: BMI 19.5
--- NOTE | 2025-07-27 22:56 | PC.NURSE ---
07/27/25 2030 Upset about new medication, (Invega), allowed nsg to console et reassure after some difficulty et was willing to take the Invega. Seemed to be happier short time later, continues to engage with nsg et noted to be smiling more.
[2025-07-28 05:35] VITALS: BP 135/87; PULSE 118; RESP 18; TEMP 36.3; O2SAT 95
[2025-07-28 13:32] VITALS: BP 116/76; PULSE 108; RESP 16; TEMP 36.7; O2SAT 97
--- NOTE | 2025-07-28 14:15 | P.NPUPN_ITS ---
Subjective NPU 2 Subjective: Patient presented today reporting that she is doing better and taking her medication. She inquired about discharge but appeared to understand it would not be soon and we discussed the fact that she is on a 21-day hold and that we need to get her functioning at a better place so that would be safe to discharge. She denied any side effects to the medication. Mental Status Exam 2 MSE Comments: This is a thin white female who appeared older than her stated age with extremely poor hygiene and normal gait. There was no evidence of any abnormal involuntary motor movements tics or tremors appreciated. There was mild psychomotor retardation. Her speech was slightly decreased in rate and increased in volume with normal prosody. Her mood was described as feeling better. Her affect was less irritable and mood-congruent. Her thought process was mostly linear and logical. Her thought content revealed no suicidal or homicidal ideation. There was evidence of prominent delusions and significant paranoid ideation. She did not appear to be responding to internal stimuli. She was alert and oriented to person and place along with date and year. Her recent and remote memory were impaired. Her attention span was impaired. Her insight is limited. Her judgment is poor. Her impulse control appeared very poor. Vitals/I&O/Wt Last Vital Signs Temp 98.1 F 07/28/25 13:32 Pulse 108 H 07/28/25 13:32 Resp 16 07/28/25 13:32 BP 116/76 07/28/25 13:32 Pulse Ox 97 07/28/25 13:32 O2 Del Method Room Air 07/28/25 13:32 Weight last 48 hrs Weight 43.998 kg Data NPU 07/17/25 17:59 07/18/25 15:13 A&P Assessment and plan 1. Acute psychosis: 2. Bipolar affective, manic, unspec: Plan: 54-year-old female negative for drugs of abuse or alcohol who presents acutely paranoid with bizarre delusions along with poor self-care. 1. Continue without medication at this time as patient denies need for medication. We will discuss medications given the mandate from the 21-day hold. Initiated Invega 3 mg p.o. nightly. 2. Encourage individual, group and milieu therapy. 3. Continue every 15 minute checks for safety. 4. Obtain collateral information. Did get some information from local law enforcement back in [place]. 5. Evaluate against the backdrop of the 96-hour hold. Likely we will require forced medication. Filed for 21-day hold. 21-day hold hearingwas today and patient placed on 20. PDMP PDMP Reviewed: Not Reviewed Involuntary Hold Information 2 Hold Status: Legal Status: 96 Hour Hold Date/Time Hold Expires: 08/15/2025 Attestations NPU 2 Medical Necessity Statement*: Inpatient hospitalization is medically necessary and the clinically appropriate intervention at this time.? We will monitor/initiate medications and make changes as indicated.? The patient?s likely length of stay is 7-10 days.? Coding Level of Care Code Acute Code for Chg Fwd Diagnoses Acute psychosis F23 Bipolar affective, manic, unspec F31.10
[2025-07-28 20:37] VITALS: BP 133/87; PULSE 127; RESP 17; TEMP 36.3; O2SAT 98
[2025-07-29 06:00] VITALS: BP 138/86; PULSE 101; RESP 16; TEMP 36.6; O2SAT 95
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
[2025-07-29 14:00] VITALS: BP 128/73; PULSE 90; RESP 18; TEMP 37.1; O2SAT 98
--- NOTE | 2025-07-29 14:41 | P.NPUPN_ITS ---
Subjective NPU 2 Subjective: Patient presented today reporting that she is doing all right. She continued to have fairly meandering stories that rarely hit a point of emphasis per staff reports and direct observation. She continued to be hopeful and bringing up discharge and we continued to talk about the importance of us being able to see clear improvement in her psychosis. We discussed the possibility of increasing the medication. She denied any side effects of medication. Mental Status Exam 2 MSE Comments: This is a thin white female who appeared older than her stated age with extremely poor hygiene and normal gait. There was no evidence of any abnormal involuntary motor movements tics or tremors appreciated. There was mild psychomotor retardation. Her speech was slightly decreased in rate and increased in volume with normal prosody. Her mood was described as feeling better. Her affect was less irritable and mood-congruent. Her thought process was mostly linear and logical. Her thought content revealed no suicidal or homicidal ideation. There was evidence of prominent delusions and significant paranoid ideation. She did not appear to be responding to internal stimuli. She was alert and oriented to person and place along with date and year. Her recent and remote memory were impaired. Her attention span was impaired. Her insight is limited. Her judgment is poor. Her impulse control appeared very poor. Vitals/I&O/Wt Last Vital Signs Temp 97.9 F 07/29/25 06:00 Pulse 101 H 07/29/25 06:00 Resp 16 07/29/25 06:00 BP 138/86 07/29/25 06:00 Pulse Ox 95 07/29/25 06:00 O2 Del Method Room Air 07/29/25 06:00 Weight last 48 hrs Weight 43.998 kg Data NPU 07/17/25 17:59 07/18/25 15:13 A&P Assessment and plan 1. Acute psychosis: 2. Bipolar affective, manic, unspec: Plan: 54-year-old female negative for drugs of abuse or alcohol who presents acutely paranoid with bizarre delusions along with poor self-care. 1. Continue without medication at this time as patient denies need for medication. We will discuss medications given the mandate from the 21-day hold. Initiated Invega 3 mg p.o. nightly. Increase Invega to 6 mg p.o. daily. 2. Encourage individual, group and milieu therapy. 3. Continue every 15 minute checks for safety. 4. Obtain collateral information. Did get some information from local law enforcement back in [place]. 5. Evaluate against the backdrop of the 96-hour hold. Likely we will require forced medication. Filed for 21-day hold. 21-day hold hearingwas today and patient placed on 20. PDMP PDMP Reviewed: Not Reviewed Involuntary Hold Information 2 Hold Status: Legal Status: 96 Hour Hold Date/Time Hold Expires: 08/15/2025 Attestations NPU 2 Medical Necessity Statement*: Inpatient hospitalization is medically necessary and the clinically appropriate intervention at this time.? We will monitor/initiate medications and make changes as indicated.? The patient?s likely length of stay is 6-9 days.? Coding Level of Care Code Acute Code for Chg Fwd Diagnoses Acute psychosis F23 Bipolar affective, manic, unspec F31.10
[2025-07-29 20:07] VITALS: BP 132/82; PULSE 97; RESP 16; TEMP 36.9; O2SAT 97
[2025-07-30 06:00] VITALS: BP 108/75; PULSE 93; RESP 16; TEMP 36.9; O2SAT 95
[2025-07-30] MEDS: paliperidone ER 6 mg Tablet PO (08:09)
--- NOTE | 2025-07-30 09:53 | P.NPUPN_ITS ---
Subjective NPU 2 Subjective: Patient presented today reporting she is doing okay. She was reporting that she was feeling more positive overall in regards to about her anxious or paranoid feelings. She seemed to be more positive or showing more positive energy per staff reports and direct observation. She reports that she has tolerated the increase in Invega from 3 to 6 mg without incident. She denied any side effects to the medication. Mental Status Exam 2 MSE Comments: This is a thin white female who appeared older than her stated age with extremely poor hygiene and normal gait. There was no evidence of any abnormal involuntary motor movements tics or tremors appreciated. There was mild psychomotor retardation. Her speech was slightly decreased in rate and increased in volume with normal prosody. Her mood was described as feeling better. Her affect was less irritable and mood-congruent. Her thought process was mostly linear and logical. Her thought content revealed no suicidal or homicidal ideation. There was evidence of prominent delusions and significant paranoid ideation. She did not appear to be responding to internal stimuli. She was alert and oriented to person and place along with date and year. Her recent and remote memory were impaired. Her attention span was impaired. Her insight is limited. Her judgment is poor. Her impulse control appeared very poor. Vitals/I&O/Wt Last Vital Signs Temp 98.4 F 07/30/25 06:00 Pulse 93 07/30/25 06:00 Resp 16 07/30/25 06:00 BP 108/75 07/30/25 06:00 Pulse Ox 95 07/30/25 06:00 O2 Del Method Room Air 07/30/25 06:00 Data NPU 07/17/25 17:59 07/18/25 15:13 A&P Assessment and plan 1. Acute psychosis: 2. Bipolar affective, manic, unspec: Plan: 54-year-old female negative for drugs of abuse or alcohol who presents acutely paranoid with bizarre delusions along with poor self-care. 1. Continue without medication at this time as patient denies need for medication. We will discuss medications given the mandate from the 21-day hold. Initiated Invega 3 mg p.o. nightly. Increased Invega to 6 mg p.o. daily. Will have to consider the Invega Sustenna after we determine if there is not worth the improvement. 2. Encourage individual, group and milieu therapy. 3. Continue every 15 minute checks for safety. 4. Obtain collateral information. Did get some information from local law enforcement back in [place]. 5. Evaluate against the backdrop of the 96-hour hold. Likely we will require forced medication. Filed for 21-day hold. 21-day hold hearingwas today and patient placed on 20. PDMP PDMP Reviewed: Not Reviewed Involuntary Hold Information 2 Hold Status: Legal Status: 96 Hour Hold Date/Time Hold Expires: 08/15/2025 Attestations NPU 2 Medical Necessity Statement*: Inpatient hospitalization is medically necessary and the clinically appropriate intervention at this time.? We will monitor/initiate medications and make changes as indicated.? The patient?s likely length of stay is 5-day days.? Coding Level of Care Code Acute Code for Chg Fwd Diagnoses Acute psychosis F23 Bipolar affective, manic, unspec F31.10
[2025-07-30 14:00] VITALS: BP 131/85; PULSE 98; RESP 18; TEMP 36.7; O2SAT 100
[2025-07-30 20:20] VITALS: BP 127/84; PULSE 121; RESP 16; TEMP 36.7; O2SAT 95
[2025-07-31 06:00] VITALS: BP 129/81; PULSE 104; RESP 16; TEMP 36.6; O2SAT 95
[2025-07-31] MEDS: paliperidone ER 6 mg Tablet PO (07:58)
--- NOTE | 2025-07-31 08:01 | PC.NURSE ---
Pt. was reluctant to take her Invega this am. It took a lot of encouragement for pt. to take the medication.
--- NOTE | 2025-07-31 12:45 | P.NPUPN_ITS ---
Subjective NPU 2 Subjective: Patient presented today still struggling with the idea that she is going to be on medication and resistant to that situation per staff reports and direct observation. She continued to discuss od and circumstances and strange realities. She denied any side effects to the medication. Mental Status Exam 2 MSE Comments: This is a thin white female who appeared older than her stated age with extremely poor hygiene and normal gait. There was no evidence of any abnormal involuntary motor movements tics or tremors appreciated. There was mild psychomotor retardation. Her speech was slightly decreased in rate and increased in volume with normal prosody. Her mood was described as feeling better. Her affect was less irritable and mood-congruent. Her thought process was mostly linear and logical. Her thought content revealed no suicidal or homicidal ideation. There was evidence of prominent delusions and significant paranoid ideation. She did not appear to be responding to internal stimuli. She was alert and oriented to person and place along with date and year. Her recent and remote memory were impaired. Her attention span was impaired. Her insight is limited. Her judgment is poor. Her impulse control appeared very poor. Vitals/I&O/Wt Last Vital Signs Temp 98,5 F 07/31/25 14:00 Pulse 109 H 07/31/25 14:00 Resp 19 H 07/31/25 14:00 BP 134/88 07/31/25 14:00 Pulse Ox 98 07/31/25 14:00 O2 Del Method Room Air 07/31/25 14:00 Data NPU 07/17/25 17:59 07/18/25 15:13 A&P Assessment and plan 1. Acute psychosis: 2. Bipolar affective, manic, unspec: Plan: 54-year-old female negative for drugs of abuse or alcohol who presents acutely paranoid with bizarre delusions along with poor self-care. 1. Continue without medication at this time as patient denies need for medication. We will discuss medications given the mandate from the 21-day hold. Initiated Invega 3 mg p.o. nightly. Increased Invega to 6 mg p.o. daily. Will have to consider the Invega Sustenna after we determine if there is not worth the improvement. 2. Encourage individual, group and milieu therapy. 3. Continue every 15 minute checks for safety. 4. Obtain collateral information. Did get some information from local law enforcement back in [place]. 5. Evaluate against the backdrop of the 96-hour hold. Likely we will require forced medication. Filed for 21-day hold. Patient is now servine 21 day hold. PDMP PDMP Reviewed: Not Reviewed Involuntary Hold Information 2 Hold Status: Legal Status: 96 Hour Hold Date/Time Hold Expires: 08/15/2025 Attestations NPU 2 Medical Necessity Statement*: Inpatient hospitalization is medically necessary and the clinically appropriate intervention at this time.? We will monitor/initiate medications and make changes as indicated.? The patient?s likely length of stay is 4-5 days.? Coding Level of Care Code Acute Code for [facility] Fwd Diagnoses Acute psychosis F23 Bipolar affective, manic, unspec F31.10
[2025-07-31 14:00] VITALS: BP 134/88; PULSE 109; RESP 19; TEMP 36.9; O2SAT 98
[2025-07-31 20:08] VITALS: BP 110/70; PULSE 115; RESP 16; TEMP 37.4; O2SAT 92
[2025-08-01 06:00] VITALS: BP 122/84; PULSE 121; RESP 16; TEMP 36.6; O2SAT 91
[2025-08-01] MEDS: paliperidone ER 6 mg Tablet PO (08:38)
[2025-08-01 14:00] VITALS: BP 138/86; PULSE 97; RESP 16; TEMP 36.6; O2SAT 97
[2025-08-01 20:22] VITALS: BP 156/104; PULSE 104; RESP 18; TEMP 36.5; O2SAT 98
--- NOTE | 2025-08-01 20:25 | P.NPUPN_ITS ---
Subjective NPU 2 Subjective: Patient presented today reporting that she is doing okay. It was noted that she is at least sitting up in bed and playing cards or something like that currently versus her significant level of isolation where she was actually under the blankets mostly all of the time per staff reports and direct observation. We discussed seeing his improvement in her engagement and she reported that she was not clear there was anything different. We discussed her having more affective prosody versus a flat nonreactive affect of her presentation. We discussed the Invega Sustenna injection including the risks, benefits and alternatives and she understood but expressed some hesitancy to an injection but we discussed our sense of a critical need for the medication and be guaranteed versus hope for with her daily medication management. She suggested she would take the medication daily but we discussed her reticence that she has expressed about taking medications in general. She denied any side effects to the medication. Mental Status Exam 2 MSE Comments: This is a thin white female who appeared older than her stated age with extremely poor hygiene and normal gait. There was no evidence of any abnormal involuntary motor movements tics or tremors appreciated. There was mild psychomotor retardation. Her speech was slightly decreased in rate and increased in volume with normal prosody. Her mood was described as feeling better. Her affect was less irritable and mood-congruent. Her thought process was mostly linear and logical. Her thought content revealed no suicidal or homicidal ideation. There was evidence of prominent delusions and significant paranoid ideation. She did not appear to be responding to internal stimuli. She was alert and oriented to person and place along with date and year. Her recent and remote memory were impaired. Her attention span was impaired. Her insight is limited. Her judgment is poor. Her impulse control appeared very poor. Vitals/I&O/Wt Last Vital Signs Temp 97.8 F 08/01/25 14:00 Pulse 97 08/01/25 14:00 Resp 16 08/01/25 14:00 BP 138/86 08/01/25 14:00 Pulse Ox 97 08/01/25 14:00 O2 Del Method Room Air 08/01/25 14:00 Data NPU 07/17/25 17:59 07/18/25 15:13 A&P Assessment and plan 1. Acute psychosis: 2. Bipolar affective, manic, unspec: Plan: 54-year-old female negative for drugs of abuse or alcohol who presents acutely paranoid with bizarre delusions along with poor self-care. 1. Continue without medication at this time as patient denies need for medication. We will discuss medications given the mandate from the 21-day hold. Initiated Invega 3 mg p.o. nightly. Increased Invega to 6 mg p.o. daily. Will have to consider the Invega Sustenna after we determine if there is not worth the improvement. 2. Encourage individual, group and milieu therapy. 3. Continue every 15 minute checks for safety. 4. Obtain collateral information. Did get some information from local law enforcement back in [place]. 5. Evaluate against the backdrop of the 96-hour hold. Likely we will require forced medication. Filed for 21-day hold. 21-day hold hearingwas today and patient placed on 20. PDMP PDMP Reviewed: Not Reviewed Involuntary Hold Information 2 Hold Status: Legal Status: 96 Hour Hold Date/Time Hold Expires: 08/15/2025 Attestations NPU 2 Medical Necessity Statement*: Inpatient hospitalization is medically necessary and the clinically appropriate intervention at this time.? We will monitor/initiate medications and make changes as indicated.? The patient?s likely length of stay is 5-7 days.? Coding Level of Care Code Acute Code for [facility] Fwd Diagnoses Acute psychosis F23 Bipolar affective, manic, unspec F31.10
[2025-08-02 06:00] VITALS: BP 106/76; PULSE 107; RESP 16; TEMP 36.9; O2SAT 91
--- NOTE | 2025-08-02 08:01 | P.NPUPN_ITS ---
Subjective NPU 2 Subjective: Patient presented today reporting that she is doing better. She has been less isolative than previously per staff reports and direct observation being seen out in the day room and having her meals out in the general area of the patient's. She had more affective range per staff reports and direct observation. And she did not seem to be aware of her cousins that said that she could come stay with him. We discussed her working with the social work team when they return on Tuesday to identify her family to step forward to ensure that she is not homeless again. She denied any side effects of the medication. We discussed her getting the initial injection and we discussed her thinking about it and's planning for this possibly tomorrow. Mental Status Exam 2 MSE Comments: This is a thin white female who appeared older than her stated age with extremely poor hygiene and normal gait. There was no evidence of any abnormal involuntary motor movements tics or tremors appreciated. There was mild psychomotor retardation. Her speech was slightly decreased in rate and increased in volume with normal prosody. Her mood was described as feeling better. Her affect was less irritable and mood-congruent. Her thought process was mostly linear and logical. Her thought content revealed no suicidal or homicidal ideation. There was evidence of prominent delusions and significant paranoid ideation. She did not appear to be responding to internal stimuli. She was alert and oriented to person and place along with date and year. Her recent and remote memory were impaired. Her attention span was impaired. Her insight is limited. Her judgment is poor. Her impulse control appeared very poor. Vitals/I&O/Wt Last Vital Signs Temp 98.5 F 08/02/25 06:00 Pulse 107 H 08/02/25 06:00 Resp 16 08/02/25 06:00 BP 106/76 08/02/25 06:00 Pulse Ox 91 08/02/25 06:00 O2 Del Method Room Air 08/02/25 06:00 Data NPU 07/17/25 17:59 07/18/25 15:13 A&P Assessment and plan 1. Acute psychosis: 2. Bipolar affective, manic, unspec: Plan: 54-year-old female negative for drugs of abuse or alcohol who presents acutely paranoid with bizarre delusions along with poor self-care. 1. Continue without medication at this time as patient denies need for medication. We will discuss medications given the mandate from the 21-day hold. Initiated Invega 3 mg p.o. nightly. Increased Invega to 6 mg p.o. daily. Will have to consider the Invega Sustenna after we determine if there is not worth the improvement. 2. Encourage individual, group and milieu therapy. 3. Continue every 15 minute checks for safety. 4. Obtain collateral information. Did get some information from local law enforcement back in [place]. 5. Evaluate against the backdrop of the 96-hour hold. Likely we will require forced medication. Filed for 21-day hold. 21-day hold hearingwas today and patient placed on 20. PDMP PDMP Reviewed: Not Reviewed Involuntary Hold Information 2 Hold Status: Legal Status: 96 Hour Hold Date/Time Hold Expires: 08/15/2025 Attestations NPU 2 Medical Necessity Statement*: Inpatient hospitalization is medically necessary and the clinically appropriate intervention at this time.? We will monitor/initiate medications and make changes as indicated.? The patient?s likely length of stay is 4-6 days.? Coding Level of Care Code Acute Code for [facility] Fwd Diagnoses Acute psychosis F23 Bipolar affective, manic, unspec F31.10
[2025-08-02] MEDS: paliperidone ER 6 mg Tablet PO (08:34)
[2025-08-02 14:00] VITALS: BP 132/74; PULSE 105; RESP 18; TEMP 36.7; O2SAT 97
[2025-08-02 20:34] VITALS: BP 145/90; PULSE 98; RESP 17; TEMP 36.8; O2SAT 96
[2025-08-03 06:00] VITALS: BP 123/83; PULSE 112; RESP 17; TEMP 36.6; O2SAT 95
[2025-08-03] MEDS: paliperidone ER 6 mg Tablet PO (08:31)
--- NOTE | 2025-08-03 12:05 | P.NPUPN_ITS ---
Vitals/I&O/Wt Last Vital Signs Temp 97.9 F 08/12/25 15:43 Pulse 91 08/12/25 15:43 Resp 16 08/12/25 15:43 BP 114/70 08/12/25 15:43 Pulse Ox 96 08/12/25 15:43 O2 Del Method Room Air 08/12/25 14:00 Data NPU 07/17/25 17:59 07/18/25 15:13 A&P PDMP PDMP Reviewed: Not Reviewed Involuntary Hold Information 2 Hold Status: Legal Status: 96 Hour Hold Date/Time Hold Expires: 08/15/2025 Coding Level of Care Code Acute Code for Chg Fwd
[2025-08-03 14:22] VITALS: BP 129/80; PULSE 95; RESP 16; TEMP 36.6; O2SAT 96
[2025-08-03 20:36] VITALS: BP 138/90; PULSE 93; RESP 18; O2SAT 97
[2025-08-04 06:00] VITALS: BMI 21.4
--- NOTE | 2025-08-04 07:57 | P.NPUPN_ITS ---
Subjective NPU 2 Subjective: Patient presented today reporting that she is doing okay. She continues to be resistant to the thought of the injection and that is seeming unclear about her family with whom she is going to live. We discussed her working with the social work team to make sure she understood that and that Dr. Calderon would be here tomorrow to assist with this process. But we discussed the likelihood of the injection prior to discharge given concerns about her being consistent with her medication. She reports she would take the medication and she denies any side effects with her medication. Mental Status Exam 2 MSE Comments: This is a thin white female who appeared older than her stated age with extremely poor hygiene and normal gait. There was no evidence of any abnormal involuntary motor movements tics or tremors appreciated. There was mild psychomotor retardation. Her speech was slightly decreased in rate and increased in volume with normal prosody. Her mood was described as feeling better. Her affect was less irritable and mood-congruent. Her thought process was marked with significant disorganization with her delusions. Her thought content revealed no suicidal or homicidal ideation. There was evidence of prominent delusions and significant paranoid ideation. She did not appear to be responding to internal stimuli. She was alert and oriented to person and place along with date and year. Her recent and remote memory were impaired. Her attention span was impaired. Her insight is limited. Her judgment is poor. Her impulse control appeared very poor. Vitals/I&O/Wt Last Vital Signs Temp 97.8 F 08/03/25 14:22 Pulse 93 08/03/25 20:36 Resp 18 08/03/25 20:36 BP 138/90 08/03/25 20:36 Pulse Ox 97 08/03/25 20:36 O2 Del Method Room Air 08/03/25 20:36 Weight last 48 hrs Weight 48.194 kg Data NPU 07/17/25 17:59 07/18/25 15:13 A&P Assessment and plan 1. Acute psychosis: 2. Bipolar affective, manic, unspec: Plan: 54-year-old female negative for drugs of abuse or alcohol who presents acutely paranoid with bizarre delusions along with poor self-care. 1. Continue without medication at this time as patient denies need for medication. We will discuss medications given the mandate from the 21-day hold. Initiated Invega 3 mg p.o. nightly. Increased Invega to 6 mg p.o. daily. Initiate Invega Sustenna 234 mg IM to deltoid. Administer second injection in 3 days prior to discharge. 2. Encourage individual, group and milieu therapy. 3. Continue every 15 minute checks for safety. 4. Obtain collateral information. Did get some information from local law enforcement back in [place]. 5. Evaluate against the backdrop of the 96-hour hold. Likely we will require forced medication. Filed for 21-day hold. 21-day hold hearingwas today and patient placed on 20. PDMP PDMP Reviewed: Not Reviewed Involuntary Hold Information 2 Hold Status: Legal Status: 96 Hour Hold Date/Time Hold Expires: 08/15/2025 Attestations NPU 2 Medical Necessity Statement*: Inpatient hospitalization is medically necessary and the clinically appropriate intervention at this time.? We will monitor/initiate medications and make changes as indicated.? The patient?s likely length of stay is 4-6 days.? Coding Level of Care Code Acute Code for [facility] Fwd Diagnoses Acute psychosis F23 Bipolar affective, manic, unspec F31.10
[2025-08-04] MEDS: paliperidone ER 6 mg Tablet PO (08:06)
[2025-08-04 13:42] VITALS: BP 118/74; PULSE 93; RESP 16; TEMP 36.6; O2SAT 95
[2025-08-04 20:02] VITALS: BP 118/83; PULSE 90; RESP 17; TEMP 36.4; O2SAT 97
[2025-08-05 06:00] VITALS: BP 127/83; PULSE 112; RESP 17; TEMP 37.1; O2SAT 96
[2025-08-05] MEDS: paliperidone ER 6 mg Tablet PO (07:58)
[2025-08-05 14:00] VITALS: BP 129/88; PULSE 79; RESP 18; TEMP 36.6; O2SAT 99
--- NOTE | 2025-08-05 18:56 | P.NPUPN_ITS ---
Subjective NPU 2 Subjective: 54-year-old female with psychosis admitt ed with paranoia and difficulties with managing self-care. The patient had reported that she was feeling better. She had been less guarded and appeared to be leaving her room more frequently. She had reported having no problems with her current medication. She was unwilling to discuss her problems any further. Mental Status Exam 2 MSE Comments: This is a thin white female who appeared older than her stated age with poor hygiene and normal gait. There was no evidence of any abnormal involuntary motor movements tics or tremors appreciated. There was mild psychomotor retardation. Her speech was slightly decreased in rate and decreased in volume with normal prosody. Her mood was described as good. Her affect was odd and subdued. Her thought process was linear and logical but superficial in content. Her thought content revealed no suicidal or homicidal ideation. There was no evidence of prominent delusions but she appeared extremely paranoid and guarded. She did not appear to be responding to internal stimuli. She was alert and oriented to person and place along with date and year. Her recent and remote memory were impaired. Her attention span was impaired. Her insight is limited. Her judgment is poor. Her impulse control appeared poor. Vitals/I&O/Wt Last Vital Signs Temp 97.8 F 08/05/25 14:00 Pulse 79 08/05/25 14:00 Resp 18 08/05/25 14:00 BP 129/88 08/05/25 14:00 Pulse Ox 99 08/05/25 14:00 O2 Del Method Room Air 08/05/25 06:00 Weight last 48 hrs Weight 48.194 kg Data NPU 07/17/25 17:59 07/18/25 15:13 A&P Assessment and plan 1. Acute psychosis: 2. Bipolar affective, manic, unspec: Plan: 54-year-old female negative for drugs of abuse or alcohol who presents acutely paranoid with bizarre delusions along with poor self-care. 1. Continue without medication at this time as patient denies need for medication. We will discuss medications given the mandate from the 21-day hold. Initiated Invega 3 mg p.o. nightly. Increased Invega to 6 mg p.o. daily. Initiate Invega Sustenna 234 mg IM to deltoid. Administer second injection in 3 days prior to discharge. 2. Encourage individual, group and milieu therapy. 3. Continue every 15 minute checks for safety. 4. Obtain collateral information. Did get some information from local law enforcement back in [place]. 5. Evaluate against the backdrop of the 96-hour hold. Filed for 21-day hold. . PDMP PDMP Reviewed: Not Reviewed Involuntary Hold Information 2 Hold Status: Legal Status: 96 Hour Hold Date/Time Hold Expires: 08/15/2025 Attestations NPU 2 Medical Necessity Statement*: Inpatient hospitalization is medically necessary and the clinically appropriate intervention at this time.? We will monitor/initiate medications and make changes as indicated.? The patient?s likely length of stay is 4-6 days.? Coding Level of Care Code Acute Code for g Fwd Diagnoses Acute psychosis F23 Bipolar affective, manic, unspec F31.10
[2025-08-05 20:37] VITALS: BP 122/81; PULSE 78; RESP 16; TEMP 36.5; O2SAT 100
[2025-08-06 06:00] VITALS: BP 106/76; PULSE 109; RESP 18; TEMP 37.2; O2SAT 94
[2025-08-06] MEDS: paliperidone ER 6 mg Tablet PO (08:34)
[2025-08-06 14:00] VITALS: BP 135/82; PULSE 101; RESP 17; TEMP 36.6; O2SAT 98
--- NOTE | 2025-08-06 16:17 | P.NPUPN_ITS ---
Subjective NPU 2 Subjective: 54-year-old female with psychosis admitt ed with paranoia and difficulties with managing self-care. She continued to remain paranoid on the unit. She reported continued denial of any problems here. She had reported that she was doing fine. She reported no side effects from her medications. She reported no thoughts of hurting herself or others. The patient had reported that she was feeling better. She remained somewhat isolative on the milieu. She had reported adequate sleep. She reports another peer on unit was a famous signal inspector on the unit. Mental Status Exam 2 MSE Comments: This is a thin white female who appeared older than her stated age with poor hygiene and normal steady gait. There was no evidence of any abnormal involuntary motor movements tics or tremors appreciated. There was mild psychomotor retardation. Her speech was slightly decreased in rate and decreased in volume with normal prosody. Her mood was described as fine. Her affect was subdued. Her thought process was linear and logical but superficial. Her thought content revealed no suicidal or homicidal ideation. There was evidence of bizarre delusions and she appeared extremely paranoid and guarded. She did not appear to be responding to internal stimuli. She was alert and oriented to person and place along with date and year. Her recent and remote memory were impaired. Her attention span was impaired. Her insight is limited. Her judgment is poor. Her impulse control appeared poor. Vitals/I&O/Wt Last Vital Signs Temp 97.8 F 08/06/25 14:00 Pulse 101 H 08/06/25 14:00 Resp 17 08/06/25 14:00 BP 135/82 08/06/25 14:00 Pulse Ox 98 08/06/25 14:00 O2 Del Method Room Air 08/06/25 06:00 Data NPU 07/17/25 17:59 07/18/25 15:13 A&P Assessment and plan 1. Acute psychosis: 2. Bipolar affective, manic, unspec: Plan: 54-year-old female negative for drugs of abuse or alcohol who presents acutely paranoid with bizarre delusions along with poor self-care. 1. Continue without medication at this time as patient denies need for medication. We will discuss medications given the mandate from the 21-day hold. Initiated Invega 3 mg p.o. nightly. Increased Invega to 6 mg p.o. daily. Awaiting confirmation as to whether patient received IM invega yet. 2. Encourage individual, group and milieu therapy. 3. Continue every 15 minute checks for safety. 4. Obtain collateral information. Did get some information from local law enforcement back in [place]. 5. Evaluate against the backdrop of the 96-hour hold. Filed for 21-day hold. . PDMP PDMP Reviewed: Not Reviewed Involuntary Hold Information 2 Hold Status: Legal Status: 96 Hour Hold Date/Time Hold Expires: 08/15/2025 Attestations NPU 2 Medical Necessity Statement*: Inpatient hospitalization is medically necessary and the clinically appropriate intervention at this time.? We will monitor/initiate medications and make changes as indicated.? The patient?s likely length of stay is 5-7 days.? Coding Level of Care Code Acute Code for [facility] Fwd Diagnoses Acute psychosis F23 Bipolar affective, manic, unspec F31.10
[2025-08-06] MEDS: paliperidone palmitate 234 mg Syringe IM (16:59)
--- NOTE | 2025-08-06 18:03 | PC.NURSE ---
Pt given 234mg IM Invega into deltoid. Pt initially refused shot but then agreed to take the shot. Pt tolerated shot well.
[2025-08-06 20:03] VITALS: BP 118/72; PULSE 106; RESP 15; TEMP 36.7; O2SAT 95
[2025-08-07 06:00] VITALS: BP 112/70; PULSE 90; RESP 15; TEMP 36.7; O2SAT 96
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
[2025-08-07] MEDS: paliperidone ER 6 mg Tablet PO (08:37)
[2025-08-07 14:00] VITALS: BP 112/74; PULSE 68; RESP 16; TEMP 37; O2SAT 98
[2025-08-07] MEDS: blistex lip oint 7 gm Tube 1 APPLIC TOPICAL (15:21)
--- NOTE | 2025-08-07 15:29 | P.NPUPN_ITS ---
Subjective NPU 2 Subjective: 54-year-old female with psychosis admitt ed with paranoia and difficulties with managing self-care. The patient reported that she was agreeable to taking the shot but expressed fear that the shot would make her angry and agitated as it had apparently to her brother in the past. She had continued to report feeling as if others were somehow responsible for her being placed here. She had appeared less guarded and remained redirectable on the milieu. She had received her Invega shot yesterday and reported no side effects from the injection. She had denied hearing any voices. She had reported adequate sleep. She had expressed concern that certain people here were somehow influenced by outside forces but she was unable to elaborate any further. Mental Status Exam 2 MSE Comments: This is a thin white female who appeared older than her stated age with poor hygiene and normal steady gait. There was no evidence of any abnormal involuntary motor movements tics or tremors appreciated. There was mild psychomotor retardation. Her speech was slightly decreased in rate and decreased in volume with normal prosody. Her mood was described as okay. Her affect was subdued and mood incongruent. Her thought process was linear and logical but superficial. Her thought content revealed no suicidal or homicidal ideation. There was evidence of vague ideas of reference and paranoid delusions. She did not appear to be responding to internal stimuli. She was alert and oriented to person and place along with date and year. Her recent and remote memory were impaired. Her attention span was impaired. Her insight is limited. Her judgment is poor. Her impulse control appeared poor. Vitals/I&O/Wt Last Vital Signs Temp 98.6 F 08/07/25 14:00 Pulse 68 08/07/25 14:00 Resp 16 08/07/25 14:00 BP 112/74 08/07/25 14:00 Pulse Ox 98 08/07/25 14:00 O2 Del Method Room Air 08/07/25 14:00 Data NPU 07/17/25 17:59 07/18/25 15:13 A&P Assessment and plan 1. Acute psychosis: 2. Bipolar affective, manic, unspec: Plan: 54-year-old female negative for drugs of abuse or alcohol who presents acutely paranoid with bizarre delusions along with poor self-care. 1. Continue without medication at this time as patient denies need for medication. We will discuss medications given the mandate from the 21-day hold. Initiated Invega 3 mg p.o. nightly. Increased Invega to 6 mg p.o. daily. Invega 234mg IM given on 08/07/25. 2. Encourage individual, group and milieu therapy. 3. Continue every 15 minute checks for safety. 4. Obtain collateral information. 5. Evaluate against the backdrop of the 96-hour hold. Filed for 21-day hold. . PDMP PDMP Reviewed: Not Reviewed Involuntary Hold Information 2 Hold Status: Legal Status: 96 Hour Hold Date/Time Hold Expires: 08/15/2025 Attestations NPU 2 Medical Necessity Statement*: Inpatient hospitalization is medically necessary and the clinically appropriate intervention at this time.? We will monitor/initiate medications and make changes as indicated.? The patient?s likely length of stay is 5-7 days.? Coding Level of Care Code Acute Code for g Fwd Diagnoses Acute psychosis F23 Bipolar affective, manic, unspec F31.10
[2025-08-07 20:02] VITALS: BP 131/87; PULSE 86; RESP 15; TEMP 36.3; O2SAT 100
[2025-08-08 06:00] VITALS: BP 120/79; PULSE 111; RESP 20; TEMP 36.8; O2SAT 92
[2025-08-08] MEDS: paliperidone ER 6 mg Tablet PO (08:54)
[2025-08-08 14:00] VITALS: BP 125/80; PULSE 107; RESP 18; O2SAT 100
--- NOTE | 2025-08-08 19:09 | P.NPUPN_ITS ---
Subjective NPU 2 Subjective: 54-year-old female with psychosis admitt ed with paranoia and difficulties with managing self-care. Patient reported no side effects from her Invega. She was more compliant and redirectable on the milieu. She appeared less isolative. She was able to attend groups. She reported that she had plans to fix up family members homes when she left here. She reported having no problems with anger and felt more comfortable about taking a monthly medication although she had asked today that whether she needed another shot today. She reported that she felt like she was in the company of nonbelievers. Mental Status Exam 2 MSE Comments: This is a thin white female who appeared older than her stated age with poor hygiene and normal steady gait. There was no evidence of any abnormal involuntary motor movements tics or tremors appreciated. There was mild psychomotor retardation. Her speech was slightly decreased in rate and decreased in volume with normal prosody. Her mood was described as okay. Her affect was blunted today. Her thought process was linear and logical but superficial. Her thought content revealed no suicidal or homicidal ideation. There was evidence of vague ideas of reference but no overt delusions noted. She did not appear to be responding to internal stimuli. She was alert and oriented to person and place along with date and year. Her recent and remote memory were impaired. Her attention span was fair. Her insight is limited. Her judgment is poor. Her impulse control appeared poor. Vitals/I&O/Wt Last Vital Signs Temp 98.2 F 08/08/25 06:00 Pulse 107 H 08/08/25 14:00 Resp 18 08/08/25 14:00 BP 125/80 08/08/25 14:00 Pulse Ox 100 08/08/25 14:00 O2 Del Method Room Air 08/08/25 06:00 08/08/25 08/08/25 08/08/25 06:59 14:59 22:59 Intake Total 480 / 480 Balance 480 / 480 Data NPU 07/17/25 17:59 07/18/25 15:13 A&P Assessment and plan 1. Acute psychosis: 2. Bipolar affective, manic, unspec: Plan: 54-year-old female negative for drugs of abuse or alcohol who presents acutely paranoid with bizarre delusions along with poor self-care. 1. Continue without medication at this time as patient denies need for medication. We will discuss medications given the mandate from the 21-day hold. Initiated Invega 3 mg p.o. nightly. Increased Invega to 6 mg p.o. daily. Invega 234mg IM given on 08/07/25. Invega 156mg due on 08/11/25. 2. Encourage individual, group and milieu therapy. 3. Continue every 15 minute checks for safety. 4. Obtain collateral information. 5. Patient now on 21-day hold. . PDMP PDMP Reviewed: Not Reviewed Involuntary Hold Information 2 Hold Status: Legal Status: 96 Hour Hold Date/Time Hold Expires: 08/15/2025 Attestations NPU 2 Medical Necessity Statement*: Inpatient hospitalization is medically necessary and the clinically appropriate intervention at this time.? We will monitor/initiate medications and make changes as indicated.? The patient?s likely length of stay is 5-7 days.? Coding Level of Care Code Acute Code for g Fwd Diagnoses Acute psychosis F23 Bipolar affective, manic, unspec F31.10
[2025-08-08 19:39] VITALS: BP 141/90; PULSE 92; RESP 16; TEMP 36.3; O2SAT 99
[2025-08-09 06:00] VITALS: BP 98/63; PULSE 101; RESP 16; TEMP 36.7; O2SAT 95
[2025-08-09] MEDS: paliperidone ER 6 mg Tablet PO (08:18)
[2025-08-09 13:08] VITALS: BP 107/67; PULSE 138; RESP 19; TEMP 37.1; O2SAT 93
--- NOTE | 2025-08-09 15:14 | P.NPUPN_ITS ---
Subjective NPU 2 Subjective: 54-year-old female with psychosis admitt ed with paranoia, psychosis and difficulties with managing self-care currently on Invega oral and having received first dose of IM Invega 234mg. The patient reported that she was feeling better. She had reported a lack of motivation and continue to isolate herself on the milieu. She had reported that she was feeling better although she had again appeared confused about why she had not received a shot of Invega today. She had reported having limited contact with any family members. She had reported improved sleep. She continued to require some prompting for engaging in completion of activities of daily living but appeared to be more motivated and more social with her peers. Mental Status Exam 2 MSE Comments: This is a thin white female who appeared older than her stated age with improved hygiene and normal steady gait. There was no evidence of any abnormal involuntary motor movements tics or tremors appreciated. There was mild psychomotor retardation. Her speech was slightly decreased in rate and decreased in volume with normal prosody. Her mood was described as allright. Her affect was blunted today. Her thought process was linear and logical but superficial. Her thought content revealed no suicidal or homicidal ideation. There was no overt ideas of reference or overt delusions noted. She did not appear to be responding to internal stimuli. She was alert and oriented to person and place along with date and year. Her recent and remote memory were impaired. Her attention span was fair. Her insight is limited. Her judgment is poor. Her impulse control appeared poor. Vitals/I&O/Wt Last Vital Signs Temp 98.7 F 08/09/25 13:08 Pulse 138 H 08/09/25 13:08 Resp 19 H 08/09/25 13:08 BP 107/67 08/09/25 13:08 Pulse Ox 93 08/09/25 13:08 O2 Del Method Room Air 08/09/25 13:08 Data NPU 07/17/25 17:59 07/18/25 15:13 A&P Assessment and plan 1. Acute psychosis: 2. Bipolar affective, manic, unspec: Plan: 54-year-old female negative for drugs of abuse or alcohol who presents acutely paranoid with bizarre delusions along with poor self-care. 1. Continue without medication at this time as patient denies need for medication. We will discuss medications given the mandate from the 21-day hold. Continue Invega at 6 mg p.o. daily. Invega 234mg IM given on 08/07/25. Invega 156mg IM due on 08/11/25. 2. Encourage individual, group and milieu therapy. 3. Continue every 15 minute checks for safety. 4. Obtain collateral information. 5. Patient now on 21-day hold. . PDMP PDMP Reviewed: Not Reviewed Involuntary Hold Information 2 Hold Status: Legal Status: 96 Hour Hold Date/Time Hold Expires: 08/15/2025 Attestations NPU 2 Medical Necessity Statement*: Inpatient hospitalization is medically necessary and the clinically appropriate intervention at this time.? We will monitor/initiate medications and make changes as indicated.? The patient?s likely length of stay is 5-7 days.? Coding Level of Care Code Acute Code for Chg Fwd Diagnoses Acute psychosis F23 Bipolar affective, manic, unspec F31.10
[2025-08-09 17:02] VITALS: PULSE 93
[2025-08-09 20:56] VITALS: BP 131/90; PULSE 88; RESP 17; TEMP 36.3; O2SAT 100
--- NOTE | 2025-08-09 23:31 | PC.NURSE ---
discharge eldon aysha called and stated that he got a call and the family was called in for his mother who is on hospice. He states he was supposed to pick the patient up tuesday and take gaurdian ship of her, but he can no longer do that as he has spoken with an deputy county attorney and his deputy county attorney advised him he would be responsible for her completely. I let him know i would share this with the physician and social workers.
[2025-08-10 06:00] VITALS: BP 108/72; PULSE 104; RESP 18; TEMP 36.7; O2SAT 92
[2025-08-10] MEDS: paliperidone ER 6 mg Tablet PO (08:26)
[2025-08-10 14:00] VITALS: BP 100/63; PULSE 94; RESP 18; TEMP 36.9; O2SAT 97
--- NOTE | 2025-08-10 15:45 | P.NPUPN_ITS ---
Subjective NPU 2 Subjective: 54-year-old female with psychosis admitt ed with paranoia, psychosis and difficulties with managing self-care currently on Invega oral and having received first dose of IM Invega 234mg. The patient had been isolating herself more as she stated that she was being triggered by a unruly patient on her side of the unit. She had reported that she did not want to get into trouble and stated that she was hopeful about being able to go home on Tuesday. She reported no side effects from her current medication regimen. She reported that she had been sleeping better. She denied any feelings of hopelessness or worthlessness. Mental Status Exam 2 MSE Comments: This is a thin white female who appeared older than her stated age with improved hygiene and normal steady gait. There was no evidence of any abnormal involuntary motor movements tics or tremors appreciated. There was mild psychomotor retardation. Her speech was slightly decreased in rate and normal in volume with normal prosody. Her mood was described as allright. Her affect was blunted today. Her thought process was linear and logical but superficial. Her thought content revealed no suicidal or homicidal ideation. There was no overt ideas of reference or overt delusions noted. She did not appear to be responding to internal stimuli. She was alert and oriented to person and place along with date and year. Her recent and remote memory were impaired. Her attention span was fair. Her insight is limited. Her judgment is improving. Her impulse control appeared to be improving as well. Vitals/I&O/Wt Last Vital Signs Temp 98.5 F 08/10/25 14:00 Pulse 94 08/10/25 14:00 Resp 18 08/10/25 14:00 BP 100/63 08/10/25 14:00 Pulse Ox 97 08/10/25 14:00 O2 Del Method Room Air 08/10/25 14:00 08/10/25 08/10/25 08/10/25 06:59 14:59 22:59 Intake Total 900 / 900 Balance 900 / 900 Data NPU 07/17/25 17:59 07/18/25 15:13 A&P Assessment and plan 1. Acute psychosis: 2. Bipolar affective, manic, unspec: Plan: 54-year-old female negative for drugs of abuse or alcohol who presents acutely paranoid with bizarre delusions along with poor self-care. 1. Continue without medication at this time as patient denies need for medication. We will discuss medications given the mandate from the 21-day hold. Continue Invega at 6 mg p.o. daily. Invega 234mg IM given on 08/07/25. Invega 156mg IM due on 08/11/25. 2. Encourage individual, group and milieu therapy. 3. Continue every 15 minute checks for safety. 4. Obtain collateral information. 5. Patient now on 21-day hold. PDMP PDMP Reviewed: Not Reviewed Involuntary Hold Information 2 Hold Status: Legal Status: 96 Hour Hold Date/Time Hold Expires: 08/15/2025 Attestations NPU 2 Medical Necessity Statement*: Inpatient hospitalization is medically necessary and the clinically appropriate intervention at this time.? We will monitor/initiate medications and make changes as indicated.? The patient?s likely length of stay is 2-3 days.? Coding Level of Care Code Acute Code for g Fwd Diagnoses Acute psychosis F23 Bipolar affective, manic, unspec F31.10
[2025-08-10 20:55] VITALS: BP 126/81; PULSE 104; RESP 18; TEMP 36.7; O2SAT 98; BMI 21.1
[2025-08-11 06:00] VITALS: BP 122/76; PULSE 112; RESP 16; TEMP 36.7; O2SAT 95
[2025-08-11] MEDS: paliperidone ER 6 mg Tablet PO (09:29)
[2025-08-11] MEDS: paliperidone palmitate 156 mg Syringe IM (10:56)
--- NOTE | 2025-08-11 11:01 | PC.NURSE ---
Pt given IM 156mg Invega shot. Pt tolerated well.
[2025-08-11 12:00] VITALS: BP 125/87; PULSE 74; RESP 18; TEMP 36.9; O2SAT 100
[2025-08-11 12:53] LABS: Respiratory Syncytial Virus Ce NEGATIVE (Negative); SARS-CoV-2 PCR NEGATIVE (Negative)
--- NOTE | 2025-08-11 14:10 | W.PM.NPUPNS ---
Subjective NPU Subjective: 54-year-old female with psychosis admitted with paranoia, psychosis and difficulties with managing self-care currently on Invega oral and having received first dose of IM Invega 234mg. Patient had reported feeling sick as she had reported nausea and stated that it had to do with the nicotine lozenges. She reported no mood symptoms. She had expressed hope that she would be able to return home and to leave tomorrow. She had reported her mood is okay. She had reported adequate sleep. She had been more engageable and was able to manage her activities of daily living. Mental Status Exam MSE Comments: This is a thin white female who appeared older than her stated age with improved hygiene and normal gait. There was no evidence of any abnormal involuntary motor movements tics or tremors appreciated. There was mild psychomotor retardation. Her speech was slightly decreased in rate and normal in volume with normal prosody. Her mood was described as okay. Her affect remained blunted. Her thought process was linear, logical and goal directed. Her thought content revealed no suicidal or homicidal ideation. There was no overt ideas of reference or overt delusions noted. She did not appear to be responding to internal stimuli. She was alert and oriented to person and place along with date and year. Her recent and remote memory were impaired. Her attention span was fair. Her insight is limited. Her judgment is improving. Her impulse control appeared to be improving as well. Vitals/I&O/Wt Last Vital Signs Temp 98.4 F 08/11/25 12:00 Pulse 74 08/11/25 12:00 Resp 18 08/11/25 12:00 BP 125/87 08/11/25 12:00 Pulse Ox 100 08/11/25 12:00 O2 Del Method Room Air 08/11/25 12:00 08/10/25 08/11/25 08/11/25 22:59 06:59 14:59 Intake Total 900 / 1800 900 / 900 Balance 900 / 1800 900 / 900 Weight last 48 hrs Weight 47.4 kg Data NPU 07/17/25 17:59 07/18/25 15:13 A&P Assessment and plan 1. Acute psychosis: 2. Bipolar affective, manic, unspec: Plan: 54-year-old female negative for drugs of abuse or alcohol who presents acutely paranoid with bizarre delusions along with poor self-care. 1. Continue without medication at this time as patient denies need for medication. We will discuss medications given the mandate from the 21-day hold. Continue Invega at 6 mg p.o. daily. Invega 234mg IM given on 08/07/25. Invega 156mg IM due on 08/11/25. 2. Encourage individual, group and milieu therapy. 3. Continue every 15 minute checks for safety. 4. Obtain collateral information. 5. Patient now on 21-day hold. Likely discharge tommorow. PDMP PDMP Reviewed: Not Reviewed Involuntary Hold Information Hold Status: Legal Status: 96 Hour Hold Date/Time Hold Expires: 08/15/2025 Attestations NPU Medical Necessity Statement*: Inpatient hospitalization is medically necessary and the clinically appropriate intervention at this time.? We will monitor/initiate medications and make changes as indicated.? The patient?s likely length of stay is 1-2 days.? Coding Level of Care Code Acute Code for [facility] Fwd Diagnoses Acute psychosis F23 Bipolar affective, manic, unspec F31.10
--- NOTE | 2025-08-11 17:03 | PC.NURSE ---
Patient continues to feel nauseated. She has not been able to eat or drink today. She has mainly isolated to her room. Tonight encouraged patient to sip on 7 up. Patient denies diarrhea and dysuria. She hasnt had any emesis today. BS are hyperactive. She did have some relief of nausea with Zofran that was given earlier.
[2025-08-11 20:51] VITALS: BP 105/63; PULSE 111; RESP 18; TEMP 37.4; O2SAT 90
[2025-08-12 06:00] VITALS: BP 103/60; PULSE 108; RESP 14; TEMP 37; O2SAT 91
[2025-08-12 14:00] VITALS: BP 114/70; PULSE 91; RESP 16; TEMP 36.6; O2SAT 96
--- NOTE | 2025-08-12 15:42 | W.PM.NPUDCS ---
Diagnoses at Discharge Discharge Diagnosis 1. Acute psychosis: 2. Bipolar affective, manic, unspec: Reason for Visit Reason for Visit: 96 HOLD Brief History: History of Present Illness Lluvia Thompson is a 54 year old female who presented to the emergency department by ambulance after arriving at the crisis center for an initial evaluation. 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 She had reported that an infertile man was sleeping with women and would take the children and use them to be trafficked for money. The patient had been [place] found sleeping [place] a [place]. The patient had reported that she was brought up here by her former friend Jeff who she states is in cahoots with her bitch ass [id number], Shakira. The patient was admitted to the neuropsychiatric unit involuntarily for further evaluation and treatment. She was an extremely poor historian. She had reported that she had been forced to stay for 4 days at another woman's home and stated that she felt that she was kidnapped. She reports that she does not need to be here and that she will have to susana those that are placing her here involuntarily. She had minimized any drug use. She reports that other people keep picking my nose into my business . The patient was extremely hostile and guarded and did not wish to provide any further information. The patient had apparently been in temporary housing through [facility] and they had spoken to the crisis center regarding the patient and stated that the patient appeared to have irrational angry outbursts multiple times while she was staying there. The patient reports that she has never been in a psychiatric facility and has never been on medications. Psychiatric history: Per police officers, the patient has been sent for psychiatric evaluations numerous times to the emergency department. She had reported no prior history of psychiatric treatment inpatient or outpatient. Substance abuse history: Denies Legal history: Denies Medical history: None reported Medications: None Social history: The patient was unwilling to provide further information but stated that she lives in [facility] and has 2 adult children. She reports that she had previously been . Hospital Course Hospital Course The patient presented involuntarily onto the milieu with extreme psychosis. She was eventually placed on a 21-day hold. She was started on Invega 3 mg daily and titrated up to a dose of 6 mg daily prior to receiving a IM dose of 234 mg of Invega on 08/07/2025 and a subsequent dose on 08/11/2025 of 156 mg of Invega intramuscularly. She had significant improvement in regards to psychosis with a reduction in paranoia. She had expressed desire to continue with the monthly medication of Invega and lieu of oral medications which could be discontinued after 2 weeks. During the hospitalization, the patient had routine laboratory studies which were within normal limits except for a few outliers.? Additionally, there was a general medical evaluation which was also within normal limits and revealed no new acute processes.? At the time of discharge, lethality was denied and psychosis was resolving.? Mood and anxiety were well managed.? The patient endorsed a plan to avoid all drugs of abuse and follow up with the aftercare recommendations of the treatment team.? The patient was evaluated and deemed to be absent credible lethality and had achieved the maximum benefit from an inpatient hospitalization, and so was discharged.? Involuntary Hold Information Hold Status: Legal Status: 96 Hour Hold Date/Time Hold Expires: 08/15/2025 Mental Status Exam MSE Comments: This is a thin white female who appeared older than her stated age with improved hygiene and normal gait. There was no evidence of any abnormal involuntary motor movements tics or tremors appreciated. There was mild psychomotor retardation. Her speech was slightly decreased in rate and normal in volume with normal prosody. Her mood was described as allright. Her affect remained blunted. Her thought process was linear, logical and goal directed. Her thought content revealed no suicidal or homicidal ideation. There was no overt ideas of reference or overt delusions noted. She did not appear to be responding to internal stimuli. She was alert and oriented to person and place along with date and year. Her recent and remote memory were impaired. Her attention span was fair. Her insight is limited. Her judgment is improving. Her impulse control appeared to be improving as well at discharge. Discharge Data Studies Completed and Pending: Laboratory Results WBC 12.46 10^3/uL (3. 29-11.43) H 07/17/25 17:59 RBC 4.21 10^6/uL (3.8 5-5.65) 07/17/25 17:59 Hgb 13.00 g/dL (11.27 -16.99) 07/17/25 17:59 Hct 40.5 % (36-47) 07/17/25 17:59 MCV 96.2 fl (85-98) 07/17/25 17:59 MCH 30.9 pg (27-33) 07/17/25 17:59 MCHC 32.1 g/dL (30-55) 07/17/25 17:59 RDW 15.2 % (12.1-15.1 ) H 07/17/25 17:59 Plt Count 445 10^3/cmm (157 -399) H 07/17/25 17:59 MPV 9.1 fL (7.4-10.4) 07/17/25 17:59 Neut % (Auto) 54.7 % 07/17/25 17:59 Lymph % (Auto) 32.7 % 07/17/25 17:59 Burt % (Auto) 10.4 % 07/17/25 17:59 Eos % (Auto) 1.8 % 07/17/25 17:59 Baso % (Auto) 0.1 % 07/17/25 17:59 Neut # (Auto) 6.82 10^3/uL (1.8 -7.7) 07/17/25 17:59 Lymph # (Auto) 4.1 10^3/uL (0.8- 4.8) 07/17/25 17:59 Burt # (Auto) 1.3 10^3/uL (0.2- 0.9) H 07/17/25 17:59 Eos # (Auto) 0.2 10^3/uL (0.0- 0.8) 07/17/25 17:59 Baso # (Auto) 0.0 10^3/uL (0.0- 0.1) 07/17/25 17:59 Nucleated RBC % (a uto) 0 % 07/17/25 17:59 Nucleated RBCs # 0.0 /100WBC 07/17/25 17:59 Sodium 138 mmol/L (136-1 45) 07/18/25 15:13 Potassium 3.6 mmol/L (3.5-5 .1) 07/18/25 15:13 Chloride 103 mmol/L (98-10 7) 07/18/25 15:13 Carbon Dioxide 26 mmol/L (22-29) 07/18/25 15:13 Anion Gap 12.6 (5-19) 07/18/25 15:13 BUN 15 mg/dL (6-20) 07/18/25 15:13 Creatinine 1.1 mg/dL (0.5-0. 9) H 07/18/25 15:13 GFR Calculation 51.4 mL/min (90-1 30) L 07/18/25 15:13 Glucose 112 mg/dL (65-115 ) 07/18/25 15:13 Calculated Osmolal ity 288 mOsm/kg (285- 295) 07/18/25 15:13 Calcium 8.2 mg/dL (8.5-10 .5) L 07/18/25 15:13 Total Bilirubin 0.5 mg/dL (0.15-1 .2) 07/18/25 15:13 AST 12 U/L (0-32) 07/18/25 15:13 ALT 17 U/L (0-33) 07/18/25 15:13 Alkaline Phosphata se 103 U/L (35-105) 07/18/25 15:13 Total Protein 5.4 g/dL (6.6-8.7 ) L D 07/18/25 15:13 Albumin 3.0 g/dL (3.5-5.2 ) L 07/18/25 15:13 Globulin 2.4 g/dL (1.3-4.6 ) 07/18/25 15:13 TSH 4.09 uIU/mL (0.27 -4.20) 07/17/25 17:59 HCG, Qual Negative (Negati ve) 07/17/25 17:45 Urine Color Yellow (Yellow) 07/17/25 19:17 Urine Appearance Clear (CLEAR) 07/17/25 19:17 Urine pH 7.0 (5-7) 07/17/25 19:17 Ur Specific Gravit y 1.004 (1.005-1.0 30) L 07/17/25 19:17 Urine Protein Negative (Negati ve) 07/17/25 19:17 Urine Glucose (UA) Negative (Normal ) 07/17/25 19:17 Urine Ketones Negative (Negati ve) 07/17/25 19:17 Urine Blood Negative (Negati ve) 07/17/25 19:17 Urine Nitrate Negative (Negati ve) 07/17/25 19:17 Urine Bilirubin Negative (Negati ve) 07/17/25 19:17 Urine Urobilinogen 1.0 mg/dL (Negati ve) 07/17/25 19:17 Ur Leukocyte Perla ase Negative (Negati ve) 07/17/25 19:17 Urine RBC 0-2 /hpf (0-2) 07/17/25 19:17 Urine WBC 0-5 /hpf (0-5) 07/17/25 19:17 Ur Squamous Epith Cells 0-5 /hpf (0-5) 07/17/25 19:17 Amorphous Sediment Not Reportable 07/17/25 19:17 Urine Bacteria None seen /hpf (N ONE) 07/17/25 19:17 Hyaline Casts 0-4 /lpf H 07/17/25 19:17 Salicylates < 0.3 mg/dL (3-10 ) L 07/17/25 17:59 Urine Opiates Scre en Negative ng/mL (N egative) 07/17/25 19:17 Acetaminophen < 5.0 ug/mL (10-3 0) L 07/17/25 17:59 Ur Barbiturates Sc reen Negative ng/mL (N egative) 07/17/25 19:17 Ur Phencyclidine S crn Negative ng/mL (N egative) 07/17/25 19:17 Ur Amphetamines Sc reen Negative ng/mL (N egative) 07/17/25 19:17 U Benzodiazepines Scrn Negative ng/mL (N egative) 07/17/25 19:17 Urine Cocaine Scre en Negative ng/mL (N egative) 07/17/25 19:17 U Marijuana (THC) Screen Negative ng/mL (N egative) 07/17/25 19:17 Ethyl Alcohol < 10 mg/dL (0-10) 07/17/25 17:59 Influenza A (PCR) Negative (Negati ve) 08/11/25 11:55 Influenza Type B ( PCR) Negative (Negati ve) 08/11/25 11:55 RSV (PCR) Negative (Negati ve) 08/11/25 11:55 SARS-CoV-2 (PCR) Negative (Negati ve) 08/11/25 11:55 Vitals: Last Vital Signs Temp 97.9 F 08/12/25 14:00 Pulse 91 08/12/25 14:00 Resp 16 08/12/25 14:00 BP 114/70 08/12/25 14:00 Pulse Ox 96 08/12/25 14:00 O2 Del Method Room Air 08/12/25 14:00 Discharge Plan Discharge Patient Disposition: Home Condition: Stable Prescriptions: New paliperidone 3 mg Tablet Extended Release 24hr 3 mg PO DAILY Qty: 14 1RF Rx Instructions: Take for 2 weeks then discontinue (Patient now on monthly IM Invega Invega Sustenna 117 mg/0.75 mL syringe 117 mg IM Q30D Qty: 0.75 2RF Rx Instructions: Next IM due on 09/10/25. Discharge Order = DC NOW: Discharge Order (Routine); Ordered 08/12/25 Ordered By: Ori Calderon Referrals: Isaac Rivera [Other] [facility] [Outside] - 1-3 days Referral Note: You will be contacted for an appointment. Discharge Diet: Usual diet Discharge Activity: Resume usual activity Patient Instructions: Paliperidone (By injection) (Invega Sustenna, Invega Trinza, Invega..., Bipolar Disorder (ED), Depression (DC), Anxiety (DC), Psychotic Disorder (DC), Suicide Prevention (DC), Opioid Safety, Patient Portal & Vaishnavi Instructions Discharge Attestations NPU Time Spent in Discharge Care*: less than 30 min Specific Discharge Activities: Specific discharge activities: educating patient, discussing with hospice case manager/social workers/dc planners, documenting/other paperwork and evaluating patient/reviewing data Coding Level of Care Code Acute Code for Chg Fwd Diagnoses Acute psychosis F23 Bipolar affective, manic, unspec F31.10
[2025-08-12 15:43] VITALS: BP 114/70; PULSE 91; RESP 16; TEMP 36.6; O2SAT 96
--- NOTE | 2025-08-12 16:09 | PC.NURSE ---
Reviewed discharge instructions with patient. Instructed patient that she would filler picker her Invega injection prior to her [facility] appointment. All questions answered. Patient left by private vehicle with friends. Patient received her oral Invega prescription.
== END 2025-08-12 15:59 | disposition home or self-care (01) | DRG 885 ==
LOC: ER 19:15 → NP 19:44
PROVIDERS: Admitting Provider Psychiatry & Neurology Psychiatry; Emergency Provider Emergency Medicine; Visit Provider Psychiatry & Neurology Psychiatry
DX: F23 Brief psychotic disorder (principal); Z59.00 Homelessness unspecified
CPT/HCPCS: 36415; 80053; 80306; 80307; 81001; 81025; 84443; 85025; 87637; 93005; 96372; 97150; 97165; 99285; J9999; Q0162